=== PATIENT | male | born 1930 | race Caucasian/White ===

== ENCOUNTER 2016-11-19 15:27 | Inpatient (IN) | payer MEDICARE, BC ==
[2016-12-08] MEDS ORDERED: Nitroglycerin 0.4 MG Tab.SL SL PRN (13:42)
[2016-12-08] MEDS ORDERED: [UNRECOGNIZED DRUG - OTHER] PO SCH (14:00)
[2016-12-08] MEDS ORDERED: Non-Formulary Medication 1 Each (Loperamide [Imodium] 2 MG) PO SCH (16:00)
[2016-12-08] MEDS ORDERED: Non-Formulary Medication 1 Each (Budesonide [Budesonide Ec] 3 MG) PO SCH (18:00)
[2016-12-08] MEDS ORDERED: Magnesium Oxide 400 MG Tab PO SCH (18:00)
[2016-12-08] MEDS ORDERED: [UNRECOGNIZED DRUG - OTHER] PO SCH (18:00)
[2016-12-08] MEDS ORDERED: [UNRECOGNIZED DRUG - REMARK] PO PRN (19:01)
[2016-12-08] MEDS ORDERED: Melatonin 3 MG Tab PO PRN (19:01)
--- NOTE | 2016-12-08 19:44 | PCM.HP ---
H&P History of Present Illness - General Date of Service: 12/08/16 Admit Problem/Dx: Admission Diagnosis/Problem Admission Diagnosis/Problem Heart valve replacement Source of Information: Patient, Family (daughter), Old Records - Related Data Allergies/Adverse Reactions: Allergies Allergy/AdvReac Type Severity Reaction Status Date / Time citalopram Allergy Unknown Verified 12/08/16 15:31 gluten Allergy Diarrhea Verified 12/08/16 15:31 iodine Allergy Hives Verified 12/08/16 15:31 Home Medications: Home Meds Cyanocobalamin (Vitamin B12) [Vitamin B12] 5,000 mcg PO QAM 05/22/14 [History] Aspirin 81 mg PO QAM 01/02/15 [History] Metoprolol Tartrate [Lopressor] 25 mg PO BID 01/02/15 [History] Multivit-Min/FA/Lycopene/Lut [Centrum Silver Tablet] 1 tab PO QAM 05/31/15 [ History] Acetaminophen [Tylenol] 650 mg PO Q6H PRN 12/08/16 [History] Allopurinol [Zyloprim] 200 mg PO DAILY 12/08/16 [History] Amiodarone HCl [Pacerone] 200 mg PO DAILY 12/08/16 [History] Amiodarone HCl [Pacerone] 400 mg PO [id number] 12/08/16 [History] Calcium Carbonate [Tums] 500 mg PO DAILY 12/08/16 [History] Cholecalciferol (Vitamin D3) [Vitamin D3] 5,000 units PO DAILY@2000 12/08/16 [ History] Diphenhyd/Lidocaine/Nystatin [Magic Mouthwash] 1 ml PO QID PRN 12/08/16 [History ] Levothyroxine Sodium [Synthroid] 75 mcg PO DAILY@0600 12/08/16 [History] Melatonin 3 mg PO BEDTIME PRN 12/08/16 [History] Pantoprazole Sodium [Protonix] 40 mg PO DAILY 12/08/16 [History] Polyethylene Glycol 3350 [Miralax] 17 gm PO BID 12/08/16 [History] Sennosides/Docusate Sodium [Senna S Tablet] 2 tab PO ASDIRECTED PRN 12/08/16 [ History] Warfarin Dosing [Coumadin Ask] 1 each PO ASDIRECTED 12/08/16 [History] predniSONE [Prednisone] 10 mg PO DAILY 12/08/16 [History] Past Medical History HEENT History: Reports: Cataract, Hard of Hearing, Impaired Vision Other HEENT History: Right-sided strabismus Cardiovascular History: Reports: Arrhythmia, CAD, Heart Failure, Heart Murmur, Heart Valve Replacement, High Cholesterol, Hypertension, Stents Respiratory History: Reports: COPD Gastrointestinal History: Reports: Cholelithiasis, Chronic Diarrhea, Colon Polyp , Diverticulosis, Gastritis, GERD, Hiatal Hernia, Pancreatitis, PUD, Other (See Below) Other Gastrointestinal History: Celiac disease Genitourinary History: Reports: Chronic Renal Insuffiency, Renal Calculus Other Genitourinary History: Chronic renal insufficiency Musculoskeletal History: Reports: Back Pain, Chronic, Neck Pain, Chronic, Osteoarthritis, Osteoporosis, Other (See Below) Other Musculoskeletal History: Right biceps tendon rupture in the early Neurological History: Reports: Headaches, Chronic, Migraines, TIA Psychiatric History: Reports: Anxiety, Depression Endocrine/Metabolic History: Reports: Hypothyroidism, Other (See Below) Other Endocrine/Metabolic History: Testosterone deficiency, hyperglycemia-diet controlled Hematologic History: Reports: Anemia, B12 Deficiency, Blood Transfusion(s) Immunologic History: Reports: Other (See Below) Other Immunologic History: Celiac disease, milk intolerance Oncologic (Cancer) History: Reports: Basal Cell Carcinoma, Lymphoma, Other (See Below) Other Oncologic History: recurrent skin cancers of unknown type in the face back , etc. Dermatologic History: Reports: Other (See Below) Other Dermatologic History: recurrent unknown type of skin cancers on the face, back, etc. - Infectious Disease History Infectious Disease History: Reports: Chicken Pox, Measles, Mumps, Shingles - Past Surgical History Head Surgeries/Procedures: Reports: None HEENT Surgical History: Reports: Cataract Surgery, Oral Surgery, Tonsillectomy Cardiovascular Surgical History: Reports: Coronary Artery Stent, Valve Replacement Respiratory Surgical History: Reports: None GI Surgical History: Reports: Cholecystectomy, Colonoscopy, EGD, Marguerite Fundoplication, Other (See Below) Musculoskeletal Surgical History: Reports: Knee Replacement Oncologic Surgical History: Reports: Other (See Below) Dermatological Surgical History: Reports: Skin Biopsy - Past Imaging History Past Imaging History: Reports: Angiography, Cardiac Echo, PET, Stress Testing, Venous Doppler Social & Family History - Family History Cardiac: Reports: Bypass, CAD, PR Respiratory: Reports: None GI: Reports: Diverticulosis, PUD : Reports: Renal Disease/Insufficiency OBGYN: Reports: None Musculoskeletal: Reports: Gout Neurological: Reports: CVA Endocrine/Metabolic: Reports: Hypothyroidism Hematologic: Reports: None Immunologic: Reports: None Dermatologic: Reports: None Oncologic: Reports: Metastatic, Prostate, Skin - Tobacco Use Smoking Status *Q: Former Smoker Years of Tobacco use: 12 Packs/Tins Daily: 0.4 Used Tobacco, but Quit: No Month Tobacco Last Used: age 31 Second Hand Smoke Exposure: No - Caffeine Use Caffeine Use: Reports: Coffee (one cup per day), Soda (one soda per week), Tea ( 2 glasses per day). Denies: Energy Drinks - Alcohol Use Days Per Week of Alcohol Use: 0 Number of Drinks Per Day: 1 Total Drinks Per Week: 0 - Recreational Drug Use Recreational Drug Use: No Drug Use in Last 12 Months: No - Living Situation & Occupation Living situation: Reports: , Alone Occupation: Retired H&P Review of Systems - Review of Systems: Review Of Systems: See Below General: Reports: Weakness, Fatigue, Decreased Appetite, Weight Loss HEENT: Reports: No Symptoms Pulmonary: Reports: Shortness of Breath Cardiovascular: Reports: No Symptoms Gastrointestinal: Reports: Decreased Appetite Genitourinary: Reports: No Symptoms Musculoskeletal: Reports: Other (joint aches due to arthritis) Skin: Reports: No Symptoms Psychiatric: Reports: No Symptoms Neurological: Reports: Weakness (generalized) Hematologic/Lymphatic: Reports: Anemia Immunologic: Reports: Other (gluten) Exam - Exam Exam: See Below - Vital Signs Vital Signs: Last Vital Signs Temp 97.9 F 12/08/16 12:58 Pulse 68 12/08/16 12:58 Resp 18 12/08/16 12:58 BP 140/73 12/08/16 12:58 Pulse Ox 97 12/08/16 12:58 Weight: 142 lb 9.6 oz - Exam Quality Assessment: DVT Prophylaxis (coumadin) General: Alert, Cooperative HEENT: Conjunctiva Clear, Mucosa Moist & [place], Pupils Equal, Pupils Reactive Neck: Trachea Midline Lungs: Clear to Auscultation, Normal Respiratory Effort Cardiovascular: Regular Rate, Regular Rhythm GI/Abdominal Exam: Soft, No Distention (Male) Exam: Deferred Rectal (Males) Exam: Deferred Back Exam: Other (scoliosis, kyphosis) Extremities: Normal Inspection, No Pedal Edema Skin: Warm, Dry, Intact, Incision (clean, dry, healing) Neurological: Strength Equal Bilateral Neuro Extensive - Mental Status: Alert, Normal Mood/Affect, Normal Cognition Psychiatric: Alert, Normal Affect, Normal Mood *Q Meaningful Use (ADM) - VTE *Q VTE Criteria *Q: - Stroke *Q Stroke Criteria *Q: - AMI *Q AMI Criteria *Q: - Problem List (1) CHF, Congestive heart failure SNOMED Code(s): 40406969 ICD Code: I50.9 - HEART FAILURE, UNSPECIFIED Status: Acute Priority: High Current Visit: No Onset Date: 05/31/15 Problem Details: IV Lasix initiated in the emergency room. No significant CHF by chest x-ray despite BNP elevation with overall normal renal function. Echocardiogram on an outpatient basis as below (2) Hypomagnesemia SNOMED Code(s): 685035409 ICD Code: E83.42 - HYPOMAGNESEMIA Status: Acute Priority: Medium Current Visit: No Onset Date: 05/31/15 Problem Details: Initiate low-dose magnesium oxide with caution secondary to his history of Crohn's disease (3) Osteoarthritis SNOMED Code(s): 288629089 ICD Code: M19.90 - UNSPECIFIED OSTEOARTHRITIS, UNSPECIFIED SITE Status: Acute Priority: High Current Visit: No Problem Details: stable by history Qualifiers: Osteoarthritis location: multiple joints Osteoarthritis type: primary Qualified Code(s): M15.0 - Primary generalized (osteo)arthritis (4) Anemia SNOMED Code(s): 208292420 ICD Code: D64.9 - ANEMIA, UNSPECIFIED Status: Chronic Priority: Medium Current Visit: No Problem Details: note history of celiac disease with iron studies to be conducted in the a.m. Qualifiers: Anemia type: unspecified type Qualified Code(s): D64.9 - Anemia, unspecified (5) Celiac disease SNOMED Code(s): 468463285 ICD Code: K90.0 - CELIAC DISEASE Status: Chronic Priority: Medium Current Visit: No Problem Details: Stable mild intermittent chronic diarrhea secondary to his celiac disease with no current abdominal complaints (6) Heart disease SNOMED Code(s): 90708139 ICD Code: I51.9 - HEART DISEASE, UNSPECIFIED Status: Chronic Priority: Medium Current Visit: No Problem Details: No recent chest pain or anginal- type symptoms. Patient will discuss with his regular provider why he is not on Plavix despite his recent PTCA/stent as above (7) Hyperlipidemia SNOMED Code(s): 82636583 ICD Code: E78.5 - HYPERLIPIDEMIA, UNSPECIFIED Status: Chronic Priority: Medium Current Visit: No Problem Details: History of dyslipidemia. Repeat lipid panel in the a.m. Qualifiers: Hyperlipidemia type: Mixed hyperlipidemia Qualified Code(s): E78.2 - Mixed hyperlipidemia (8) Hypertension SNOMED Code(s): 37328135 ICD Code: I10 - ESSENTIAL (PRIMARY) HYPERTENSION Status: Chronic Priority : Medium Current Visit: No Problem Details: Blood pressures relatively stable in the emergency room. Continue to observe closely during this hospitalization and by his regular provider Qualifiers: Hypertension type: essential hypertension (9) Peptic reflux disease SNOMED Code(s): 87438661 ICD Code: K21.9 - GASTRO-ESOPHAGEAL REFLUX DISEASE WITHOUT ESOPHAGITIS Status: Chronic Priority: Medium Current Visit: No Problem Details: Stable by history with IV Pepcid given in the emergency room as GI prophylaxis (10) Valvular disease SNOMED Code(s): 347916 ICD Code: I38 - ENDOCARDITIS, VALVE UNSPECIFIED Status: Chronic Priority : Medium Current Visit: No Problem Details: Stable by clinical exam. Consider repeat echocardiogram, which is not available until next Thursday, on an outpatient basis (11) Atrial fibrillation with rapid ventricular response SNOMED Code(s): 029307061116509 ICD Code: I48.91 - UNSPECIFIED ATRIAL FIBRILLATION Status: Acute Priority : High Current Visit: Yes (12) Aortic valve replaced SNOMED Code(s): 8915820190810, 513818839, 7912072131621 ICD Code: Z95.2 - PRESENCE OF PROSTHETIC HEART VALVE Status: Acute Priority: High Current Visit: Yes (13) Mitral valve replaced SNOMED Code(s): 8791605853760, 8213207123627 ICD Code: Z95.2 - PRESENCE OF PROSTHETIC HEART VALVE Status: Acute Priority: High Current Visit: Yes (14) Status post tricuspid valve repair SNOMED Code(s): 143925468802499, 334948795, 018084135347433 ICD Code: Z98.890 - OTHER SPECIFIED POSTPROCEDURAL STATES Status: Acute Priority: High Current Visit: Yes (15) Coronary artery disease SNOMED Code(s): 39070723 ICD Code: I25.10 - ATHSCL HEART DISEASE OF [place] CORONARY ARTERY W/O ANG PCTRS Status: Acute Current Visit: Yes Qualifiers: Coronary Disease-Associated Artery/Lesion type: [place] artery [place] vs. transplanted heart: [place] heart Associated angina: without angina Qualified Code(s): I25.10 - Atherosclerotic heart disease of [place] coronary artery without angina pectoris (16) Diastolic heart failure, NYHA class 3 SNOMED Code(s): 739936242 ICD Code: I50.30 - UNSPECIFIED DIASTOLIC (CONGESTIVE) HEART FAILURE Status : Acute Priority: High Current Visit: Yes (17) History of B-cell lymphoma SNOMED Code(s): 737174615 ICD Code: Z85.72 - PERSONAL HISTORY OF NON-HODGKIN LYMPHOMAS Status: Acute Priority: Low Current Visit: Yes (18) Scoliosis SNOMED Code(s): 162583966 ICD Code: M41.9 - SCOLIOSIS, UNSPECIFIED Status: Acute Current Visit: Yes Qualifiers: Scoliosis type: idiopathic Idiopathic scoliosis type: other Spinal region : thoracolumbar Qualified Code(s): M41.25 - Other idiopathic scoliosis, thoracolumbar region (19) Lumbar spondylosis SNOMED Code(s): 698676580 ICD Code: M47.816 - SPONDYLOSIS W/O MYELOPATHY OR RADICULOPATHY, LUMBAR REGION Status: Acute Priority: Low Current Visit: Yes (20) Gout SNOMED Code(s): 98817752 ICD Code: M10.9 - GOUT, UNSPECIFIED Status: Acute Priority: Low Current Visit: Yes Qualifiers: Gout site: unspecified site Gout etiology: idiopathic Chronicity: chronic Presence of tophus: without tophus Qualified Code(s): M1A.00X0 - Idiopathic chronic gout, unspecified site, without tophus (tophi) (21) Hypothyroidism SNOMED Code(s): 46999952 ICD Code: E03.9 - HYPOTHYROIDISM, UNSPECIFIED Status: Acute Priority: Low Current Visit: Yes Qualifiers: Hypothyroidism type: unspecified Qualified Code(s): E03.9 - Hypothyroidism , unspecified Problem List Initiated/Reviewed/Updated: Yes Orders Last 24hrs: Active Orders 24 hr Category Date Time Status Patient Status [ADT] Routine ADT 12/08/16 18:46 Ordered Ambulate [RC] ASDIRECTED Care 12/08/16 18:46 Ordered Communication Order [RC] ROUTINE Care 12/08/16 19:30 Ordered Dietary Supplements [RC] BIDMEALS Care 12/08/16 18:46 Ordered EKG Documentation Completion [RC] ASDIRECTED Care 12/09/16 05:11 Ordered Height and Weight [RC] PER UNIT ROUTINE Care 12/08/16 18:51 Ordered May Shower [RC] ASDIRECTED Care 12/08/16 18:46 Ordered Oxygen Therapy [RC] PRN Care 12/08/16 18:46 Ordered VTE/DVT Education [RC] PER UNIT ROUTINE Care 12/08/16 18:46 Ordered Vaccines to be Administered [RC] PER UNIT ROUTINE Care 12/08/16 18:55 Ordered Vital Signs [RC] PER UNIT ROUTINE Care 12/08/16 18:46 Ordered Consult to Case Management [CONS] Routine Cons 12/08/16 18:46 Ordered Consult to Fitness Leader [CONS] Routine Cons 12/08/16 18:46 Ordered Consult to Occupational Therapy [OT Evaluation and Cons 12/08/16 19:01 Ordered Treatment] [CONS] Routine Consult to Physical Therapy [PT Evaluation and Cons 12/08/16 19:00 Ordered Treatment] [CONS] Routine Regular Diet [DIET] Diet 12/08/16 Dinner Active CBC WITH AUTO DIFF [HEME] Routine Lab 12/09/16 05:11 Ordered CMP [COMPREHENSIVE METABOLIC PN,CMP] [CHEM] Routine Lab 12/09/16 05:11 Ordered INR,PT,PROTHROMBIN TIME [COAG] Routine Lab 12/09/16 05:11 Ordered MAGNESIUM [CHEM] Routine Lab 12/09/16 05:11 Ordered TSH ULTRASENSITIVE [CHEM] Routine Lab 12/09/16 05:11 Ordered URIC ACID [CHEM] Routine Lab 12/09/16 05:11 Ordered VITAMIN D 25-HYROXY (D2, D3) [REF] Routine Lab 12/09/16 05:11 Ordered Acetaminophen [Tylenol Arthritis Pain] Med 12/08/16 20:00 Once 650 mg PO ONETIME ONE Acetaminophen [Tylenol Arthritis Pain] Med 12/09/16 08:00 Ordered 650 mg PO TID Acetaminophen [Tylenol] Med 12/08/16 19:01 Ordered 650 mg PO Q6H PRN Allopurinol [Zyloprim] Med 12/09/16 08:00 Ordered 200 mg PO DAILY Amiodarone [Cordarone] Med 12/27/16 08:00 Active 200 mg PO DAILY Amiodarone [Cordarone] Med 12/09/16 08:00 Ordered 400 mg PO [id number] Calcium Carbonate [Tums] Med 12/09/16 08:00 Ordered 500 mg PO DAILY Cholecalciferol (Vitamin D3) [Vitamin D3] Med 12/08/16 20:00 Ordered 5,000 units PO DAILY@2000 Diphenhyd/Lidocaine/Nystatin [Magic Mouthwash] Med 12/08/16 19:01 Ordered 1 ml PO QID PRN Docusate Sodium/Sennosides [Senna Plus] Med 12/08/16 19:01 Ordered 2 tab PO ASDIRECTED PRN Levothyroxine Med 12/09/16 06:00 Ordered 75 mcg PO DAILY@0600 Melatonin Med 12/08/16 19:01 Ordered 3 mg PO BEDTIME PRN Pantoprazole [ProTONIX] Med 12/09/16 08:00 Ordered 40 mg PO DAILY Polyethylene Glycol 3350 [MiraLAX] Med 12/09/16 08:00 Ordered 17 gm PO BID Warfarin [Coumadin] Med 12/08/16 20:00 Once 1 mg PO ONETIME ONE predniSONE [Prednisone] Med 12/09/16 08:00 Ordered 10 mg PO DAILY GM Immunization Reflex [OM.PC] Click To Edit Oth 12/08/16 18:46 Ordered Resuscitation Status Routine Resus Stat 12/08/16 18:46 Ordered EKG 12 Lead [EK] Routine Ther 12/09/16 05:11 Ordered Medication Orders Acetaminophen (Tylenol) 650 mg PO Q6H PRN PRN Reason: Pain Acetaminophen (Tylenol Arthritis Pain) 650 mg PO TID [place] Acetaminophen (Tylenol Arthritis Pain) 650 mg PO ONETIME ONE Stop: 12/08/16 20:01 Allopurinol (Zyloprim) 200 mg PO DAILY [facility] Amiodarone HCl (Cordarone) 400 mg PO DAILY [facility] Stop: 12/26/16 08:01 Amiodarone HCl (Cordarone) 200 mg PO DAILY [facility] Stop: 03/26/17 08:01 Calcium Carbonate/Glycine (Tums) 500 mg PO DAILY [facility] Cholecalciferol (Vitamin D3) 5,000 units PO DAILY@2000 [facility] Levothyroxine Sodium (Levothyroxine) 75 mcg PO DAILY@0600 [facility] Melatonin (Melatonin) 3 mg PO BEDTIME PRN PRN Reason: Insomnia Non-Form Diphenhyd/Lidocaine/Nystatin [Magic Mouthwash] 1 Ml) 1 ml PO QID PRN PRN Reason: MOUTH/THROAT PAIN Pantoprazole Sodium (Protonix) 40 mg PO DAILY [facility] Polyethylene Glycol (Miralax) 17 gm PO BID [facility] Prednisone (Prednisone) 10 mg PO DAILY [facility] Senna/Docusate Sodium (Senna Plus) 2 tab PO ASDIRECTED PRN PRN Reason: Constipation Warfarin Sodium (Coumadin) 1 mg PO ONETIME ONE Stop: 12/08/16 20:01 Assessment/Plan Comment:: 86 year old white male coronary artery disease with history of percutaneous coronary intervention, symptomatic severe mitral valve regurgitation, severe aortic valve stenosis, chronic diastolic heart failure, secondary to valvular heart disease, NYHA III, celiac disease, history of Crohn's disease on prednisone, hypertension, history of B-cell lymphoma 5 years ago, chemotherapy only, significant scoliosis and lumbar spondylosis, gout, hypothyroidism, right shoulder injury, hiatal hernia surgery, cholecystectomy, tonsillectomy, bilateral knee replacement. He had surgical procedures done at [facility] by Dr. Zan Merino on November 11, 2016. Postoperative course he did well. He did develop atrial fibrillation with RVR. On coumadin for aortic valve replacement and atrial fibrillation. Coumadin may be stopped in 3 months if he has no reoccurrence of the atrial fibrillation. On 11/17/16 hgb was 6.8. He was transfused 2 units PRBCs. Hgb was 9.4 on 11/26/16. He had increasing infiltrates per chest xray. He was treated for pneumonia and aggressive diuresis. He had cardioversion for atrial fibrillation on 11/26/16 which was successful. He is admitted to swing bed for continuing PT-OT, managing coumadin.
[2016-12-08] MEDS ORDERED: Acetaminophen 650 MG Tab.ER PO ONE (20:00)
[2016-12-08] MEDS ORDERED: Metoprolol Tartrate 25 MG Tab PO SCH (20:00)
[2016-12-08] MEDS: Cholecalciferol (Vitamin D3) 1,000 Unit Tab PO SCH (20:04)
[2016-12-09] MEDS ORDERED: Levothyroxine 75 MCG Tab PO SCH (06:00)
[2016-12-09] MEDS: Calcium Carbonate 500 MG Tab.Chew PO SCH (07:30)
[2016-12-09] MEDS: Amiodarone 200 MG Tab PO SCH (07:31)
[2016-12-09] MEDS: Allopurinol 100 MG Tab PO SCH (07:31)
[2016-12-09] MEDS: Acetaminophen 650 MG Tab.ER PO SCH ×3 (07:32→20:44)
[2016-12-09] MEDS: Pantoprazole 40 MG Tab.CR PO SCH (07:32)
[2016-12-09] MEDS: predniSONE 5 MG Tab PO SCH (07:32)
[2016-12-09] MEDS: Polyethylene Glycol 3350 Powder 17 GM Packet PO SCH ×2 (07:32→17:28)
[2016-12-09 07:43] LABS: CHLORIDE,CL 103 mmol/L (98-107); SODIUM,NA 138 mmol/L (136-145)
[2016-12-09] MEDS ORDERED: Levothyroxine 50 MCG Tab PO SCH (08:00)
[2016-12-09] MEDS ORDERED: Clopidogrel 75 MG Tab PO SCH (08:00)
[2016-12-09] MEDS ORDERED: Acetaminophen 650 MG Tab.ER PO SCH (08:00)
[2016-12-09] MEDS ORDERED: Finasteride 5 MG Tab PO SCH (08:00)
[2016-12-09] MEDS ORDERED: Cyanocobalamin (Vitamin B12) 1,000 MCG Tab PO SCH (08:00)
[2016-12-09] MEDS ORDERED: Aspirin 81 MG Tab.Chew PO SCH (08:00)
[2016-12-09] MEDS ORDERED: Non-Formulary Medication 1 Each (Multivit-Min/Fa/Lycopene/Lut [Centrum Silver Tablet] 1 TA PO SCH (08:00)
[2016-12-09] MEDS ORDERED: Non-Formulary Medication 1 Each (Cholecalciferol (Vitamin D3) [Vitamin D3] 2,000 UNITS) PO SCH (08:00)
[2016-12-09] MEDS: Magnesium Oxide 400 MG Tab PO SCH ×2 (11:44→17:27)
[2016-12-09] MEDS: Metoprolol Tartrate 25 MG Tab PO SCH ×2 (13:25→20:42)
[2016-12-09] MEDS: Cyanocobalamin (Vitamin B12) 1,000 MCG Tab PO SCH (13:27)
[2016-12-09] MEDS: Aspirin 81 MG Tab.Chew PO SCH (13:27)
[2016-12-09] MEDS: Cholecalciferol (Vitamin D3) 1,000 Unit Tab PO SCH (20:44)
[2016-12-10] MEDS: Levothyroxine 100 MCG Tab PO SCH (06:03)
[2016-12-10] MEDS: Aspirin 81 MG Tab.Chew PO SCH (09:14)
[2016-12-10] MEDS: Amiodarone 200 MG Tab PO SCH (09:15)
[2016-12-10] MEDS: Metoprolol Tartrate 25 MG Tab PO SCH ×2 (09:16→19:44)
[2016-12-10] MEDS: Magnesium Oxide 400 MG Tab PO SCH ×3 (09:17→17:36)
[2016-12-10] MEDS: Polyethylene Glycol 3350 Powder 17 GM Packet PO SCH ×2 (09:18→17:36)
[2016-12-10] MEDS: predniSONE 5 MG Tab PO SCH (09:19)
[2016-12-10] MEDS: Pantoprazole 40 MG Tab.CR PO SCH (09:20)
[2016-12-10] MEDS: Calcium Carbonate 500 MG Tab.Chew PO SCH (09:21)
[2016-12-10] MEDS: Acetaminophen 650 MG Tab.ER PO SCH ×3 (09:21→19:45)
[2016-12-10] MEDS: Allopurinol 100 MG Tab PO SCH (09:27)
[2016-12-10] MEDS: Cyanocobalamin (Vitamin B12) 1,000 MCG Tab PO SCH (10:24)
[2016-12-10] MEDS: Cholecalciferol (Vitamin D3) 1,000 Unit Tab PO SCH (19:44)
[2016-12-11] MEDS: Allopurinol 100 MG Tab PO SCH (07:45)
[2016-12-11] MEDS: Levothyroxine 100 MCG Tab PO SCH (07:45)
[2016-12-11] MEDS: predniSONE 5 MG Tab PO SCH (07:46)
[2016-12-11] MEDS: Metoprolol Tartrate 25 MG Tab PO SCH ×2 (07:46→19:31)
[2016-12-11] MEDS: Cyanocobalamin (Vitamin B12) 1,000 MCG Tab PO SCH (07:47)
[2016-12-11] MEDS: Acetaminophen 650 MG Tab.ER PO SCH ×3 (07:47→19:30)
[2016-12-11] MEDS: Aspirin 81 MG Tab.Chew PO SCH (07:48)
[2016-12-11] MEDS: Magnesium Oxide 400 MG Tab PO SCH ×3 (07:48→17:27)
[2016-12-11] MEDS: Pantoprazole 40 MG Tab.CR PO SCH (07:48)
[2016-12-11] MEDS: Amiodarone 200 MG Tab PO SCH (07:48)
[2016-12-11] MEDS: Calcium Carbonate 500 MG Tab.Chew PO SCH (07:49)
[2016-12-11] MEDS: Polyethylene Glycol 3350 Powder 17 GM Packet PO SCH ×2 (07:49→17:27)
--- NOTE | 2016-12-11 14:17 | PCM.PN ---
- General Info Date of Service: 12/11/16 Admission Dx/Problem (Free Text): Admission Diagnosis/Problem Admission Diagnosis/Problem Heart valve replacement Functional Status: Reports: Pain Controlled, Ambulating (but BP labile with ambulation) - Review of Systems General: Reports: Appetite (decreased) HEENT: Reports: No Symptoms Pulmonary: Reports: No Symptoms Cardiovascular: Reports: No Symptoms Gastrointestinal: Reports: Decreased Appetite Genitourinary: Reports: No Symptoms Musculoskeletal: Reports: Back Pain (chronic) Skin: Reports: No Symptoms Neurological: Reports: No Symptoms Psychiatric: Reports: No Symptoms - Patient Data Vitals - Most Recent: Last Vital Signs Temp 97.5 F 12/11/16 07:11 Pulse 63 12/11/16 07:46 Resp 18 12/11/16 07:11 BP 117/66 12/11/16 07:46 Pulse Ox 98 12/11/16 07:11 Weight - Most Recent: 139 lb 14.4 oz I&O - Last 24 Hours: Intake & Output 12/10/16 12/11/16 12/11/16 22:59 06:59 14:59 Intake Total 500 Output Total 600 450 Balance -600 50 Med Orders - Current: Current Medications Acetaminophen (Tylenol) 650 mg PO Q6H PRN PRN Reason: Pain Acetaminophen (Tylenol Arthritis Pain) 650 mg PO TID@0800,1400,2000 [facility] Last Admin: 12/11/16 13:36 Dose: 650 mg Allopurinol (Zyloprim) 200 mg PO DAILY [facility] Last Admin: 12/11/16 07:45 Dose: 200 mg Amiodarone HCl (Cordarone) 400 mg PO DAILY [facility] Stop: 12/26/16 08:01 Last Admin: 12/11/16 07:48 Dose: 400 mg Amiodarone HCl (Cordarone) 200 mg PO DAILY [facility] Stop: 03/26/17 08:01 Aspirin (Aspirin) 81 mg PO DAILY [facility] Last Admin: 12/11/16 07:48 Dose: 81 mg Calcium Carbonate/Glycine (Tums) 500 mg PO DAILY [facility] Last Admin: 12/11/16 07:49 Dose: 500 mg Cholecalciferol (Vitamin D3) 5,000 units PO DAILY@1999 [facility] Last Admin: 12/10/16 19:44 Dose: 5,000 units Cyanocobalamin (Vitamin B12) 5,000 mcg PO DAILY [facility] Last Admin: 12/11/16 07:47 Dose: 5,000 mcg Levothyroxine Sodium (Synthroid) 100 mcg PO DAILY@0600 [facility] Last Admin: 12/11/16 07:45 Dose: 100 mcg Magnesium Oxide (Magnesium Oxide) 400 mg PO TID [facility] Last Admin: 12/11/16 11:43 Dose: 400 mg Melatonin (Melatonin) 3 mg PO BEDTIME PRN PRN Reason: Insomnia Last Admin: 12/08/16 20:03 Dose: 3 mg Metoprolol Tartrate (Lopressor) 25 mg PO Q12HR [facility] Last Admin: 12/11/16 07:46 Dose: 25 mg Non-Form Diphenhyd/Lidocaine/Nystatin [Magic Mouthwash] 1 Ml) 1 ml PO QID PRN PRN Reason: MOUTH/THROAT PAIN Pantoprazole Sodium (Protonix) 40 mg PO DAILY [facility] Last Admin: 12/11/16 07:48 Dose: 40 mg Polyethylene Glycol (Miralax) 17 gm PO BID [facility] Last Admin: 12/11/16 07:49 Dose: 17 gm Prednisone (Prednisone) 10 mg PO DAILY [facility] Last Admin: 12/11/16 07:46 Dose: 10 mg Senna/Docusate Sodium (Senna Plus) 2 tab PO ASDIRECTED PRN PRN Reason: Constipation Last Admin: 12/09/16 11:45 Dose: 2 tab Warfarin Sodium (Coumadin) 3 mg PO DAILY@1800 [facility] Last Admin: 12/10/16 17:34 Dose: 3 mg Discontinued Medications Acetaminophen (Tylenol Arthritis Pain) 650 mg PO TID [facility] Acetaminophen (Tylenol Arthritis Pain) 650 mg PO ONETIME ONE Stop: 12/08/16 20:01 Last Admin: 12/08/16 20:03 Dose: 650 mg Levothyroxine Sodium (Levothyroxine) 75 mcg PO DAILY@0600 [facility] Last Admin: 12/09/16 07:30 Dose: 75 mcg Warfarin Sodium (Coumadin) 1 mg PO ONETIME ONE Stop: 12/08/16 20:01 Last Admin: 12/08/16 20:03 Dose: 1 mg - Exam General: Alert, Cooperative, No Acute Distress HEENT: Pupils Equal, Pupils Reactive, EOMI, Mucous Membr. Moist/[place] Neck: Trachea Midline, No JVD Lungs: Clear to Auscultation, Normal Respiratory Effort Cardiovascular: Regular Rate, Regular Rhythm GI/Abdominal Exam: Soft, Non-Tender, No Distention (Male) Exam: Deferred Back Exam: Decreased Range of Motion, Other (scoliosis, kyphosis) Extremities: Normal Inspection, Non-Tender, No Pedal Edema Skin: Warm, Dry, Intact Neurological: No New Focal Deficit Psy/Mental Status: Alert, Normal Affect, Normal Mood - Problem List & Annotations (1) CHF, Congestive heart failure SNOMED Code(s): 83989604 Code(s): I50.9 - HEART FAILURE, UNSPECIFIED Status: Acute Priority: High Current Visit: No Onset Date: 05/31/15 Annotation/Comment:: IV Lasix initiated in the emergency room. No significant CHF by chest x-ray despite BNP elevation with overall normal renal function. Echocardiogram on an outpatient basis as below (2) Hypomagnesemia SNOMED Code(s): 046247118 Code(s): E83.42 - HYPOMAGNESEMIA Status: Acute Priority: Medium Current Visit: No Onset Date: 05/31/15 Annotation/Comment:: Initiate low- dose magnesium oxide with caution secondary to his history of Crohn's disease (3) Osteoarthritis SNOMED Code(s): 405135402 Code(s): M19.90 - UNSPECIFIED OSTEOARTHRITIS, UNSPECIFIED SITE Status: Acute Priority: High Current Visit: No Qualifiers: Osteoarthritis location: multiple joints Osteoarthritis type: primary Qualified Code(s): M15.0 - Primary generalized (osteo)arthritis Annotation/Comment:: stable by history (4) Anemia SNOMED Code(s): 781782411 Code(s): D64.9 - ANEMIA, UNSPECIFIED Status: Chronic Priority: Medium Current Visit: No Qualifiers: Anemia type: unspecified type Qualified Code(s): D64.9 - Anemia, unspecified Annotation/Comment:: note history of celiac disease with iron studies to be conducted in the a.m. (5) Celiac disease SNOMED Code(s): 375746941 Code(s): K90.0 - CELIAC DISEASE Status: Chronic Priority: Medium Current Visit: No Annotation/Comment:: Stable mild intermittent chronic diarrhea secondary to his celiac disease with no current abdominal complaints (6) Heart disease SNOMED Code(s): 87966279 Code(s): I51.9 - HEART DISEASE, UNSPECIFIED Status: Chronic Priority: Medium Current Visit: No Annotation/Comment:: No recent chest pain or anginal-type symptoms. Patient will discuss with his regular provider why he is not on Plavix despite his recent PTCA/stent as above (7) Hyperlipidemia SNOMED Code(s): 30655643 Code(s): E78.5 - HYPERLIPIDEMIA, UNSPECIFIED Status: Chronic Priority: Medium Current Visit: No Qualifiers: Hyperlipidemia type: Mixed hyperlipidemia Qualified Code(s): E78.2 - Mixed hyperlipidemia Annotation/Comment:: History of dyslipidemia. Repeat lipid panel in the a.m. (8) Hypertension SNOMED Code(s): 45559857 Code(s): I10 - ESSENTIAL (PRIMARY) HYPERTENSION Status: Chronic Priority : Medium Current Visit: No Qualifiers: Hypertension type: essential hypertension Annotation/Comment:: Blood pressures relatively stable in the emergency room. Continue to observe closely during this hospitalization and by his regular provider (9) Peptic reflux disease SNOMED Code(s): 36747496 Code(s): K21.9 - GASTRO-ESOPHAGEAL REFLUX DISEASE WITHOUT ESOPHAGITIS Status: Chronic Priority: Medium Current Visit: No Annotation/Comment:: Stable by history with IV Pepcid given in the emergency room as GI prophylaxis (10) Valvular disease SNOMED Code(s): 479419 Code(s): I38 - ENDOCARDITIS, VALVE UNSPECIFIED Status: Chronic Priority: Medium Current Visit: No Annotation/Comment:: Stable by clinical exam. Consider repeat echocardiogram, which is not available until next Thursday, on an outpatient basis (11) Atrial fibrillation with rapid ventricular response SNOMED Code(s): 066666246397208 Code(s): I48.91 - UNSPECIFIED ATRIAL FIBRILLATION Status: Acute Priority : High Current Visit: Yes (12) Aortic valve replaced SNOMED Code(s): 7856320967446, 248164217, 3469742867776 Code(s): Z95.2 - PRESENCE OF PROSTHETIC HEART VALVE Status: Acute Priority: High Current Visit: Yes (13) Mitral valve replaced SNOMED Code(s): 8162652319752, 3586797716213 Code(s): Z95.2 - PRESENCE OF PROSTHETIC HEART VALVE Status: Acute Priority: High Current Visit: Yes (14) Status post tricuspid valve repair SNOMED Code(s): 541431326853226, 506027829, 565830088567737 Code(s): Z98.890 - OTHER SPECIFIED POSTPROCEDURAL STATES Status: Acute Priority: High Current Visit: Yes (15) Coronary artery disease SNOMED Code(s): 66808632 Code(s): I25.10 - ATHSCL HEART DISEASE OF [place] CORONARY ARTERY W/O ANG PCTRS Status: Acute Current Visit: Yes Qualifiers: Coronary Disease-Associated Artery/Lesion type: [place] artery [place] vs. transplanted heart: [place] heart Associated angina: without angina Qualified Code(s): I25.10 - Atherosclerotic heart disease of [place] coronary artery without angina pectoris (16) Diastolic heart failure, NYHA class 3 SNOMED Code(s): 287318312 Code(s): I50.30 - UNSPECIFIED DIASTOLIC (CONGESTIVE) HEART FAILURE Status: Acute Priority: High Current Visit: Yes (17) History of B-cell lymphoma SNOMED Code(s): 456962101 Code(s): Z85.72 - PERSONAL HISTORY OF NON-HODGKIN LYMPHOMAS Status: Acute Priority: Low Current Visit: Yes (18) Scoliosis SNOMED Code(s): 676765361 Code(s): M41.9 - SCOLIOSIS, UNSPECIFIED Status: Acute Current Visit: Yes Qualifiers: Scoliosis type: idiopathic Idiopathic scoliosis type: other Spinal region : thoracolumbar Qualified Code(s): M41.25 - Other idiopathic scoliosis, thoracolumbar region (19) Lumbar spondylosis SNOMED Code(s): 063880069 Code(s): M47.816 - SPONDYLOSIS W/O MYELOPATHY OR RADICULOPATHY, LUMBAR REGION Status: Acute Priority: Low Current Visit: Yes (20) Gout SNOMED Code(s): 41233451 Code(s): M10.9 - GOUT, UNSPECIFIED Status: Acute Priority: Low Current Visit: Yes Qualifiers: Gout site: unspecified site Gout etiology: idiopathic Chronicity: chronic Presence of tophus: without tophus Qualified Code(s): M1A.00X0 - Idiopathic chronic gout, unspecified site, without tophus (tophi) (21) Hypothyroidism SNOMED Code(s): 78508276 Code(s): E03.9 - HYPOTHYROIDISM, UNSPECIFIED Status: Acute Priority: Low Current Visit: Yes Qualifiers: Hypothyroidism type: unspecified Qualified Code(s): E03.9 - Hypothyroidism , unspecified - Problem List Review Problem List Initiated/Reviewed/Updated: Yes - My Orders Last 24 Hours: My Active Orders 12/12/16 05:11 INR,PT,PROTHROMBIN TIME [COAG] Routine MAGNESIUM [CHEM] Routine 12/27/16 08:00 Amiodarone [Cordarone] 200 mg PO DAILY - Plan Plan:: 86 year old white male coronary artery disease with history of percutaneous coronary intervention, symptomatic severe mitral valve regurgitation, severe aortic valve stenosis, chronic diastolic heart failure, secondary to valvular heart disease, NYHA III, celiac disease, history of Crohn's disease on prednisone, hypertension, history of B-cell lymphoma 5 years ago, chemotherapy only, significant scoliosis and lumbar spondylosis, gout, hypothyroidism, right shoulder injury, hiatal hernia surgery, cholecystectomy, tonsillectomy, bilateral knee replacement. He had surgical procedures done at [facility] by Dr. Zan Merino on November 11, 2016. Postoperative course he did well. He did develop atrial fibrillation with RVR. On coumadin for aortic valve replacement and atrial fibrillation. Coumadin may be stopped in 3 months if he has no reoccurrence of the atrial fibrillation. On 11/17/16 hgb was 6.8. He was transfused 2 units PRBCs. Hgb was 9.4 on 11/26/16. He had increasing infiltrates per chest xray. He was treated for pneumonia and aggressive diuresis. He had cardioversion for atrial fibrillation on 11/26/16 which was successful. He is admitted to swing bed for continuing PT-OT, managing coumadin. 12/11/16 Ernie Flores MD Feels good. Working in PT but having blood pressure fluctuation with exercise. Labs reviewed. EKG normal sinus rhythm. Continue medical treatment plan.
[2016-12-11] MEDS: Cholecalciferol (Vitamin D3) 1,000 Unit Tab PO SCH (19:30)
[2016-12-12] MEDS: Acetaminophen 325 MG Tab PO PRN (02:12)
[2016-12-12] MEDS: Levothyroxine 100 MCG Tab PO SCH (06:19)
[2016-12-12] MEDS: Polyethylene Glycol 3350 Powder 17 GM Packet PO SCH ×2 (07:18→17:28)
[2016-12-12] MEDS: Pantoprazole 40 MG Tab.CR PO SCH (07:19)
[2016-12-12] MEDS: Cyanocobalamin (Vitamin B12) 1,000 MCG Tab PO SCH (07:19)
[2016-12-12] MEDS: Aspirin 81 MG Tab.Chew PO SCH (07:19)
[2016-12-12] MEDS: Amiodarone 200 MG Tab PO SCH (07:19)
[2016-12-12] MEDS: Magnesium Oxide 400 MG Tab PO SCH (07:19)
[2016-12-12] MEDS: predniSONE 5 MG Tab PO SCH (07:20)
[2016-12-12] MEDS: Acetaminophen 650 MG Tab.ER PO SCH ×3 (07:20→20:42)
[2016-12-12] MEDS: Calcium Carbonate 500 MG Tab.Chew PO SCH (07:20)
[2016-12-12] MEDS: Allopurinol 100 MG Tab PO SCH (07:20)
[2016-12-12] MEDS: Metoprolol Tartrate 25 MG Tab PO SCH ×2 (07:21→20:42)
[2016-12-12 08:14] LABS: CHLORIDE,CL 101 mmol/L (98-107); SODIUM,NA 137 mmol/L (136-145)
[2016-12-12] MEDS: Atropine/Diphenoxylate 0.025-2.5 MG Tab PO PRN (11:01)
[2016-12-12] MEDS: Warfarin 2 MG Tab PO SCH (17:29)
[2016-12-12] MEDS: Cholecalciferol (Vitamin D3) 1,000 Unit Tab PO SCH (20:42)
--- NOTE | 2016-12-12 21:12 | PCM.PN ---
- General Info Date of Service: 12/12/16 Admission Dx/Problem (Free Text): Admission Diagnosis/Problem Admission Diagnosis/Problem Heart valve replacement Functional Status: Reports: Tolerating Diet, Ambulating - Review of Systems General: Reports: No Symptoms HEENT: Reports: No Symptoms Pulmonary: Reports: Shortness of Breath (this AM but not bad) Cardiovascular: Reports: No Symptoms Gastrointestinal: Reports: Diarrhea (x1 stool this AM but none since, he thinks from celiac) Genitourinary: Reports: No Symptoms Musculoskeletal: Reports: Back Pain (chronic) Skin: Reports: No Symptoms Neurological: Reports: No Symptoms Psychiatric: Reports: No Symptoms - Patient Data Vitals - Most Recent: Last Vital Signs Temp 98.3 F 12/12/16 20:00 Pulse 69 12/12/16 20:42 Resp 18 12/12/16 20:00 BP 118/77 12/12/16 20:42 Pulse Ox 98 12/12/16 20:00 Weight - Most Recent: 141 lb 8 oz I&O - Last 24 Hours: Intake & Output 12/12/16 12/12/16 12/12/16 06:59 14:59 22:59 Intake Total 600 240 Balance 600 240 Lab Results Last 24 Hours: Laboratory Results - last 24 hr 12/12/16 12/12/16 12/12/16 Range/Units 07:15 07:15 07:15 WBC 5.7 (4.0-10.2) K/uL RBC 3.54 L (4.33-5.41) M/uL Hgb 10.0 L (13.1-16.8) g/dL Hct 31.1 L (39.0-49.0) % MCV 87.9 (84.0-98.0) fL MCH 28.2 (28.2-33.3) pg MCHC 32.2 (31.7-36.0) g/dL RDW 18.1 H (11.2-14.1) % Plt Count 259 (150-350) K/uL Neut % (Auto) 67.1 (45.0-80.0) % Lymph % (Auto) 17.1 (10.0-50.0) % [place] % (Auto) 15.3 H (2.0-14.0) % Eos % (Auto) 0.0 (0.0-5.0) % Baso % (Auto) 0.5 (0.0-2.0) % Neut # (Auto) 3.81 (1.40-7.00) K/uL Lymph # (Auto) 0.97 (0.50-3.50) K/uL [place] # (Auto) 0.87 (0.00-1.00) K/uL Eos # (Auto) 0.00 (0.00-0.50) K/uL Baso # (Auto) 0.03 (0.00-0.20) K/uL PT 22.1 H (9.8-11.7) SEC INR 2.0 Sodium 137 (136-145) mmol/L Potassium 4.3 (3.5-5.1) mmol/L Chloride 101 (98-107) mmol/L Carbon Dioxide 25.5 (21.0-32.0) mmol/L BUN 24 H (7-18) mg/dL Creatinine 0.84 (0.51-1.17) mg/dL Est Cr Clr Drug Dosing 57.71 mL/min Estimated GFR (MDRD) > 60 mL/min Glucose 81 (74-106) mg/dL Calcium 8.5 (8.5-10.1) mg/dL Magnesium 1.8 (1.8-2.4) mg/dL Total Bilirubin 0.2 (0.2-1.0) mg/dL AST 26 (15-37) U/L ALT 24 (12-78) U/L Alkaline Phosphatase 117 H (46-116) IU/L C-Reactive Protein (<=0.9) mg/dL Total Protein 6.3 L (6.4-8.2) g/dL Albumin 2.9 L (3.4-5.0) g/dL 12/12/16 Range/Units 07:15 WBC (4.0-10.2) K/uL RBC (4.33-5.41) M/uL Hgb (13.1-16.8) g/dL Hct (39.0-49.0) % MCV (84.0-98.0) fL MCH (28.2-33.3) pg MCHC (31.7-36.0) g/dL RDW (11.2-14.1) % Plt Count (150-350) K/uL Neut % (Auto) (45.0-80.0) % Lymph % (Auto) (10.0-50.0) % [place] % (Auto) (2.0-14.0) % Eos % (Auto) (0.0-5.0) % Baso % (Auto) (0.0-2.0) % Neut # (Auto) (1.40-7.00) K/uL Lymph # (Auto) (0.50-3.50) K/uL [place] # (Auto) (0.00-1.00) K/uL Eos # (Auto) (0.00-0.50) K/uL Baso # (Auto) (0.00-0.20) K/uL PT (9.8-11.7) SEC INR Sodium (136-145) mmol/L Potassium (3.5-5.1) mmol/L Chloride (98-107) mmol/L Carbon Dioxide (21.0-32.0) mmol/L BUN (7-18) mg/dL Creatinine (0.51-1.17) mg/dL Est Cr Clr Drug Dosing mL/min Estimated GFR (MDRD) mL/min Glucose (74-106) mg/dL Calcium (8.5-10.1) mg/dL Magnesium (1.8-2.4) mg/dL Total Bilirubin (0.2-1.0) mg/dL AST (15-37) U/L ALT (12-78) U/L Alkaline Phosphatase (46-116) IU/L C-Reactive Protein 0.3 (<=0.9) mg/dL Total Protein (6.4-8.2) g/dL Albumin (3.4-5.0) g/dL Med Orders - Current: Current Medications Acetaminophen (Tylenol) 650 mg PO Q6H PRN PRN Reason: Pain Last Admin: 12/12/16 02:12 Dose: 650 mg Acetaminophen (Tylenol Arthritis Pain) 650 mg PO TID@0800,1400,2000 [facility] Last Admin: 12/12/16 20:42 Dose: 650 mg Allopurinol (Zyloprim) 100 mg PO DAILY [facility] Amiodarone HCl (Cordarone) 400 mg PO DAILY [facility] Stop: 12/26/16 08:01 Last Admin: 12/12/16 07:19 Dose: 400 mg Amiodarone HCl (Cordarone) 200 mg PO DAILY [facility] Stop: 03/26/17 08:01 Aspirin (Aspirin) 81 mg PO DAILY [facility] Last Admin: 12/12/16 07:19 Dose: 81 mg Calcium Carbonate/Glycine (Tums) 500 mg PO DAILY [facility] Last Admin: 12/12/16 07:20 Dose: 500 mg Cholecalciferol (Vitamin D3) 5,000 units PO DAILY@2000 [facility] Last Admin: 12/12/16 20:42 Dose: 5,000 units Cyanocobalamin (Vitamin B12) 5,000 mcg PO DAILY [facility] Last Admin: 12/12/16 07:19 Dose: 5,000 mcg Diphenoxylate HCl/Atropine (Lomotil 0.025-2.5 Mg) 1 tab PO TID PRN PRN Reason: Diarrhea Last Admin: 12/12/16 11:01 Dose: 1 tab Levothyroxine Sodium (Levothyroxine) 75 mcg PO DAILY@0600 [facility] Melatonin (Melatonin) 3 mg PO BEDTIME PRN PRN Reason: Insomnia Last Admin: 12/08/16 20:03 Dose: 3 mg Metoprolol Tartrate (Lopressor) 25 mg PO Q12HR [facility] Last Admin: 12/12/16 20:42 Dose: 25 mg Non-Form Diphenhyd/Lidocaine/Nystatin [Magic Mouthwash] 1 Ml) 1 ml PO QID PRN PRN Reason: MOUTH/THROAT PAIN Pantoprazole Sodium (Protonix) 40 mg PO DAILY [facility] Last Admin: 12/12/16 07:19 Dose: 40 mg Polyethylene Glycol (Miralax) 17 gm PO BID [facility] Last Admin: 12/12/16 17:28 Dose: 17 gm Prednisone (Prednisone) 10 mg PO DAILY [facility] Last Admin: 12/12/16 07:20 Dose: 10 mg Senna/Docusate Sodium (Senna Plus) 2 tab PO ASDIRECTED PRN PRN Reason: Constipation Last Admin: 12/09/16 11:45 Dose: 2 tab Warfarin Sodium (Coumadin) 4 mg PO DAILY@1800 [facility] Last Admin: 12/12/16 17:29 Dose: 4 mg Discontinued Medications Acetaminophen (Tylenol Arthritis Pain) 650 mg PO TID [facility] Acetaminophen (Tylenol Arthritis Pain) 650 mg PO ONETIME ONE Stop: 12/08/16 20:01 Last Admin: 12/08/16 20:03 Dose: 650 mg Allopurinol (Zyloprim) 200 mg PO DAILY [facility] Last Admin: 12/12/16 07:20 Dose: 200 mg Levothyroxine Sodium (Levothyroxine) 75 mcg PO DAILY@0600 [facility] Last Admin: 12/09/16 07:30 Dose: 75 mcg Levothyroxine Sodium (Synthroid) 100 mcg PO DAILY@0600 [facility] Last Admin: 12/12/16 06:19 Dose: 100 mcg Magnesium Oxide (Magnesium Oxide) 400 mg PO TID [facility] Last Admin: 12/12/16 07:19 Dose: 400 mg Warfarin Sodium (Coumadin) 1 mg PO ONETIME ONE Stop: 12/08/16 20:01 Last Admin: 12/08/16 20:03 Dose: 1 mg Warfarin Sodium (Coumadin) 3 mg PO DAILY@1800 [facility] Last Admin: 12/11/16 17:27 Dose: 3 mg - Exam Quality Assessment: DVT Prophylaxis (coumadin) General: Alert, Cooperative, No Acute Distress HEENT: Mucous Membr. Moist/[place] Neck: Trachea Midline, No JVD Lungs: Clear to Auscultation, Normal Respiratory Effort Cardiovascular: Regular Rate, Regular Rhythm GI/Abdominal Exam: Soft, Non-Tender, No Distention (Male) Exam: Deferred Back Exam: Other (scoliosis, kyphosis) Extremities: Normal Inspection, Non-Tender, No Pedal Edema Skin: Warm, Dry, Intact Wound/Incisions: Healing Well, No Drainage Neurological: No New Focal Deficit Psy/Mental Status: Alert, Normal Affect, Normal Mood - Problem List & Annotations (1) CHF, Congestive heart failure SNOMED Code(s): 97867092 Code(s): I50.9 - HEART FAILURE, UNSPECIFIED Status: Acute Priority: High Current Visit: No Onset Date: 05/31/15 Annotation/Comment:: IV Lasix initiated in the emergency room. No significant CHF by chest x-ray despite BNP elevation with overall normal renal function. Echocardiogram on an outpatient basis as below (2) Hypomagnesemia SNOMED Code(s): 606374342 Code(s): E83.42 - HYPOMAGNESEMIA Status: Acute Priority: Medium Current Visit: No Onset Date: 05/31/15 Annotation/Comment:: Initiate low- dose magnesium oxide with caution secondary to his history of Crohn's disease (3) Osteoarthritis SNOMED Code(s): 846618916 Code(s): M19.90 - UNSPECIFIED OSTEOARTHRITIS, UNSPECIFIED SITE Status: Acute Priority: High Current Visit: No Qualifiers: Osteoarthritis location: multiple joints Osteoarthritis type: primary Qualified Code(s): M15.0 - Primary generalized (osteo)arthritis Annotation/Comment:: stable by history (4) Anemia SNOMED Code(s): 945507284 Code(s): D64.9 - ANEMIA, UNSPECIFIED Status: Chronic Priority: Medium Current Visit: No Qualifiers: Anemia type: unspecified type Qualified Code(s): D64.9 - Anemia, unspecified Annotation/Comment:: note history of celiac disease with iron studies to be conducted in the a.m. (5) Celiac disease SNOMED Code(s): 513489449 Code(s): K90.0 - CELIAC DISEASE Status: Chronic Priority: Medium Current Visit: No Annotation/Comment:: Stable mild intermittent chronic diarrhea secondary to his celiac disease with no current abdominal complaints (6) Heart disease SNOMED Code(s): 77346049 Code(s): I51.9 - HEART DISEASE, UNSPECIFIED Status: Chronic Priority: Medium Current Visit: No Annotation/Comment:: No recent chest pain or anginal-type symptoms. Patient will discuss with his regular provider why he is not on Plavix despite his recent PTCA/stent as above (7) Hyperlipidemia SNOMED Code(s): 20035623 Code(s): E78.5 - HYPERLIPIDEMIA, UNSPECIFIED Status: Chronic Priority: Medium Current Visit: No Qualifiers: Hyperlipidemia type: Mixed hyperlipidemia Qualified Code(s): E78.2 - Mixed hyperlipidemia Annotation/Comment:: History of dyslipidemia. Repeat lipid panel in the a.m. (8) Hypertension SNOMED Code(s): 09357666 Code(s): I10 - ESSENTIAL (PRIMARY) HYPERTENSION Status: Chronic Priority : Medium Current Visit: No Qualifiers: Hypertension type: essential hypertension Annotation/Comment:: Blood pressures relatively stable in the emergency room. Continue to observe closely during this hospitalization and by his regular provider (9) Peptic reflux disease SNOMED Code(s): 08363192 Code(s): K21.9 - GASTRO-ESOPHAGEAL REFLUX DISEASE WITHOUT ESOPHAGITIS Status: Chronic Priority: Medium Current Visit: No Annotation/Comment:: Stable by history with IV Pepcid given in the emergency room as GI prophylaxis (10) Valvular disease SNOMED Code(s): 183283 Code(s): I38 - ENDOCARDITIS, VALVE UNSPECIFIED Status: Chronic Priority: Medium Current Visit: No Annotation/Comment:: Stable by clinical exam. Consider repeat echocardiogram, which is not available until next Thursday, on an outpatient basis (11) Atrial fibrillation with rapid ventricular response SNOMED Code(s): 166429548023861 Code(s): I48.91 - UNSPECIFIED ATRIAL FIBRILLATION Status: Acute Priority : High Current Visit: Yes (12) Aortic valve replaced SNOMED Code(s): 2783884659194, 2674123688953 Code(s): Z95.2 - PRESENCE OF PROSTHETIC HEART VALVE Status: Acute Priority: High Current Visit: Yes (13) Mitral valve replaced SNOMED Code(s): 8314976145525, 2876020462623 Code(s): Z95.2 - PRESENCE OF PROSTHETIC HEART VALVE Status: Acute Priority: High Current Visit: Yes (14) Status post tricuspid valve repair SNOMED Code(s): 250657155139504, 022866495, 792656341961138 Code(s): Z98.890 - OTHER SPECIFIED POSTPROCEDURAL STATES Status: Acute Priority: High Current Visit: Yes (15) Coronary artery disease SNOMED Code(s): 07901452 Code(s): I25.10 - ATHSCL HEART DISEASE OF [place] CORONARY ARTERY W/O ANG PCTRS Status: Acute Current Visit: Yes Qualifiers: Coronary Disease-Associated Artery/Lesion type: [place] artery [place] vs. transplanted heart: [place] heart Associated angina: without angina Qualified Code(s): I25.10 - Atherosclerotic heart disease of [place] coronary artery without angina pectoris (16) Diastolic heart failure, NYHA class 3 SNOMED Code(s): 204627160 Code(s): I50.30 - UNSPECIFIED DIASTOLIC (CONGESTIVE) HEART FAILURE Status: Acute Priority: High Current Visit: Yes (17) History of B-cell lymphoma SNOMED Code(s): 671835783 Code(s): Z85.72 - PERSONAL HISTORY OF NON-HODGKIN LYMPHOMAS Status: Acute Priority: Low Current Visit: Yes (18) Scoliosis SNOMED Code(s): 602529365 Code(s): M41.9 - SCOLIOSIS, UNSPECIFIED Status: Acute Current Visit: Yes Qualifiers: Scoliosis type: idiopathic Idiopathic scoliosis type: other Spinal region : thoracolumbar Qualified Code(s): M41.25 - Other idiopathic scoliosis, thoracolumbar region (19) Lumbar spondylosis SNOMED Code(s): 302348720 Code(s): M47.816 - SPONDYLOSIS W/O MYELOPATHY OR RADICULOPATHY, LUMBAR REGION Status: Acute Priority: Low Current Visit: Yes (20) Gout SNOMED Code(s): 47410552 Code(s): M10.9 - GOUT, UNSPECIFIED Status: Acute Priority: Low Current Visit: Yes Qualifiers: Gout site: unspecified site Gout etiology: idiopathic Chronicity: chronic Presence of tophus: without tophus Qualified Code(s): M1A.00X0 - Idiopathic chronic gout, unspecified site, without tophus (tophi) (21) Hypothyroidism SNOMED Code(s): 69730589 Code(s): E03.9 - HYPOTHYROIDISM, UNSPECIFIED Status: Acute Priority: Low Current Visit: Yes Qualifiers: Hypothyroidism type: unspecified Qualified Code(s): E03.9 - Hypothyroidism , unspecified - Problem List Review Problem List Initiated/Reviewed/Updated: Yes - My Orders Last 24 Hours: My Active Orders 12/12/16 12:33 Chest 2V [CR] Routine 12/12/16 12:35 EKG Documentation Completion [RC] ASDIRECTED EKG 12 Lead [EK] Routine 12/12/16 18:00 Warfarin [Coumadin] 4 mg PO DAILY@1800 12/13/16 06:00 Levothyroxine 75 mcg PO DAILY@0600 12/13/16 08:00 Allopurinol [Zyloprim] 100 mg PO DAILY 12/15/16 05:11 CBC WITH AUTO DIFF [HEME] Routine CMP [COMPREHENSIVE METABOLIC PN,CMP] [CHEM] Routine FOLATE [REF] Routine INR,PT,PROTHROMBIN TIME [COAG] Routine MAGNESIUM [CHEM] Routine VITAMIN B12 [CHEM] Routine VITAMIN D 25-HYROXY (D2, D3) [REF] Routine 12/27/16 08:00 Amiodarone [Cordarone] 200 mg PO DAILY - Plan Plan:: 86 year old white male coronary artery disease with history of percutaneous coronary intervention, symptomatic severe mitral valve regurgitation, severe aortic valve stenosis, chronic diastolic heart failure, secondary to valvular heart disease, NYHA III, celiac disease, history of Crohn's disease on prednisone, hypertension, history of B-cell lymphoma 5 years ago, chemotherapy only, significant scoliosis and lumbar spondylosis, gout, hypothyroidism, right shoulder injury, hiatal hernia surgery, cholecystectomy, tonsillectomy, bilateral knee replacement. He had surgical procedures done at [facility] by Dr. Zan Merino on November 11, 2016. Postoperative course he did well. He did develop atrial fibrillation with RVR. On coumadin for aortic valve replacement and atrial fibrillation. Coumadin may be stopped in 3 months if he has no reoccurrence of the atrial fibrillation. On 11/17/16 hgb was 6.8. He was transfused 2 units PRBCs. Hgb was 9.4 on 11/26/16. He had increasing infiltrates per chest xray. He was treated for pneumonia and aggressive diuresis. He had cardioversion for atrial fibrillation on 11/26/16 which was successful. He is admitted to swing bed for continuing PT-OT, managing coumadin. 12/11/16 Ernie Flores MD Feels good. Working in PT but having blood pressure fluctuation with exercise. Labs reviewed. EKG normal sinus rhythm. Continue medical treatment plan. 12/12/16 Ernie Flores MD Shortness of breath this AM but not significant he says. Also one loose stool this AM but none since. He says from his celiac. Discussed labs, CXR, and EKG results. INR 2.0. Coumadin adjusted.
[2016-12-13] MEDS: Levothyroxine 75 MCG Tab PO SCH (06:04)
[2016-12-13] MEDS: Aspirin 81 MG Tab.Chew PO SCH (07:55)
[2016-12-13] MEDS: Calcium Carbonate 500 MG Tab.Chew PO SCH (07:55)
[2016-12-13] MEDS: Cyanocobalamin (Vitamin B12) 1,000 MCG Tab PO SCH (07:55)
[2016-12-13] MEDS: Pantoprazole 40 MG Tab.CR PO SCH (07:56)
[2016-12-13] MEDS: Metoprolol Tartrate 25 MG Tab PO SCH ×2 (07:56→21:07)
[2016-12-13] MEDS: predniSONE 5 MG Tab PO SCH (07:56)
[2016-12-13] MEDS: Allopurinol 100 MG Tab PO SCH (07:56)
[2016-12-13] MEDS: Acetaminophen 650 MG Tab.ER PO SCH ×3 (07:56→21:06)
[2016-12-13] MEDS: Polyethylene Glycol 3350 Powder 17 GM Packet PO SCH ×2 (07:57→17:17)
[2016-12-13] MEDS: Amiodarone 200 MG Tab PO SCH (07:57)
[2016-12-13] MEDS: Atropine/Diphenoxylate 0.025-2.5 MG Tab PO PRN (09:36)
[2016-12-13] MEDS: Warfarin 2 MG Tab PO SCH (17:17)
[2016-12-13] MEDS: Cholecalciferol (Vitamin D3) 1,000 Unit Tab PO SCH (21:08)
[2016-12-14] MEDS: Levothyroxine 75 MCG Tab PO SCH (06:18)
[2016-12-14] MEDS: Polyethylene Glycol 3350 Powder 17 GM Packet PO SCH ×2 (07:17→17:32)
[2016-12-14] MEDS: predniSONE 5 MG Tab PO SCH (07:18)
[2016-12-14] MEDS: Metoprolol Tartrate 25 MG Tab PO SCH ×2 (07:18→19:23)
[2016-12-14] MEDS: Cyanocobalamin (Vitamin B12) 1,000 MCG Tab PO SCH (07:18)
[2016-12-14] MEDS: Acetaminophen 650 MG Tab.ER PO SCH ×3 (07:18→19:22)
[2016-12-14] MEDS: Aspirin 81 MG Tab.Chew PO SCH (07:18)
[2016-12-14] MEDS: Pantoprazole 40 MG Tab.CR PO SCH (07:19)
[2016-12-14] MEDS: Allopurinol 100 MG Tab PO SCH (07:19)
[2016-12-14] MEDS: Amiodarone 200 MG Tab PO SCH (07:19)
[2016-12-14] MEDS: Calcium Carbonate 500 MG Tab.Chew PO SCH (07:19)
[2016-12-14] MEDS: Warfarin 2 MG Tab PO SCH (17:32)
[2016-12-14] MEDS: Cholecalciferol (Vitamin D3) 1,000 Unit Tab PO SCH (19:22)
[2016-12-15] MEDS: Levothyroxine 75 MCG Tab PO SCH (05:59)
[2016-12-15] MEDS: Polyethylene Glycol 3350 Powder 17 GM Packet PO SCH ×2 (07:58→17:29)
[2016-12-15] MEDS: Acetaminophen 650 MG Tab.ER PO SCH ×3 (07:59→20:36)
[2016-12-15] MEDS: predniSONE 5 MG Tab PO SCH (07:59)
[2016-12-15] MEDS: Cyanocobalamin (Vitamin B12) 1,000 MCG Tab PO SCH (07:59)
[2016-12-15] MEDS: Metoprolol Tartrate 25 MG Tab PO SCH ×2 (08:00→20:36)
[2016-12-15] MEDS: Allopurinol 100 MG Tab PO SCH (08:00)
[2016-12-15] MEDS: Pantoprazole 40 MG Tab.CR PO SCH (08:00)
[2016-12-15] MEDS: Aspirin 81 MG Tab.Chew PO SCH (08:00)
[2016-12-15] MEDS: Amiodarone 200 MG Tab PO SCH (08:00)
[2016-12-15] MEDS: Calcium Carbonate 500 MG Tab.Chew PO SCH (08:00)
[2016-12-15 08:49] LABS: CHLORIDE,CL 103 mmol/L (98-107); SODIUM,NA 138 mmol/L (136-145)
[2016-12-15] MEDS: Magnesium Oxide 400 MG Tab PO SCH (14:14)
[2016-12-15] MEDS: Warfarin 2 MG Tab PO SCH (17:29)
[2016-12-15] MEDS: Cholecalciferol (Vitamin D3) 1,000 Unit Tab PO SCH (20:37)
[2016-12-16] MEDS: Acetaminophen 325 MG Tab PO PRN (02:50)
[2016-12-16] MEDS: Levothyroxine 75 MCG Tab PO SCH (06:25)
[2016-12-16] MEDS: Polyethylene Glycol 3350 Powder 17 GM Packet PO SCH ×2 (07:37→17:13)
[2016-12-16] MEDS: Calcium Carbonate 500 MG Tab.Chew PO SCH (07:38)
[2016-12-16] MEDS: predniSONE 5 MG Tab PO SCH (07:38)
[2016-12-16] MEDS: Metoprolol Tartrate 25 MG Tab PO SCH ×2 (07:38→20:00)
[2016-12-16] MEDS: Acetaminophen 650 MG Tab.ER PO SCH ×3 (07:39→20:00)
[2016-12-16] MEDS: Amiodarone 200 MG Tab PO SCH (07:39)
[2016-12-16] MEDS: Magnesium Oxide 400 MG Tab PO SCH (13:50)
[2016-12-16] MEDS: Allopurinol 100 MG Tab PO SCH (13:50)
[2016-12-16] MEDS: Aspirin 81 MG Tab.Chew PO SCH (13:50)
[2016-12-16] MEDS: Cyanocobalamin (Vitamin B12) 1,000 MCG Tab PO SCH (13:50)
[2016-12-16] MEDS: Cholecalciferol (Vitamin D3) 1,000 Unit Tab PO SCH (19:59)
[2016-12-16] MEDS: Pantoprazole 40 MG Tab.CR PO SCH (20:00)
[2016-12-17] MEDS: Acetaminophen 325 MG Tab PO PRN (03:41)
[2016-12-17] MEDS: Levothyroxine 75 MCG Tab PO SCH (06:22)
[2016-12-17] MEDS: Amiodarone 200 MG Tab PO SCH (07:34)
[2016-12-17] MEDS: Metoprolol Tartrate 25 MG Tab PO SCH ×2 (07:34→20:19)
[2016-12-17] MEDS: predniSONE 5 MG Tab PO SCH (07:35)
[2016-12-17] MEDS: Polyethylene Glycol 3350 Powder 17 GM Packet PO SCH ×2 (07:35→17:19)
[2016-12-17] MEDS: Calcium Carbonate 500 MG Tab.Chew PO SCH (07:35)
[2016-12-17] MEDS: Acetaminophen 650 MG Tab.ER PO SCH ×3 (07:35→20:19)
[2016-12-17] MEDS: Allopurinol 100 MG Tab PO SCH (14:12)
[2016-12-17] MEDS: Aspirin 81 MG Tab.Chew PO SCH (14:12)
[2016-12-17] MEDS: Magnesium Oxide 400 MG Tab PO SCH (14:12)
[2016-12-17] MEDS: Cyanocobalamin (Vitamin B12) 1,000 MCG Tab PO SCH (14:14)
[2016-12-17] MEDS: Warfarin 2 MG Tab PO SCH (17:20)
[2016-12-17] MEDS ORDERED: Menthol/Methyl Salicylate 85 GM Tube TOP PRN (19:53)
[2016-12-17] MEDS: Pantoprazole 40 MG Tab.CR PO SCH (20:19)
[2016-12-17] MEDS: Cholecalciferol (Vitamin D3) 1,000 Unit Tab PO SCH (20:19)
[2016-12-18] MEDS: Levothyroxine 75 MCG Tab PO SCH (06:28)
[2016-12-18] MEDS: Metoprolol Tartrate 25 MG Tab PO SCH ×2 (08:27→19:50)
[2016-12-18] MEDS: Acetaminophen 650 MG Tab.ER PO SCH ×3 (08:28→19:50)
[2016-12-18] MEDS: Calcium Carbonate 500 MG Tab.Chew PO SCH (08:28)
[2016-12-18] MEDS: predniSONE 5 MG Tab PO SCH (08:30)
[2016-12-18] MEDS: Amiodarone 200 MG Tab PO SCH (08:33)
[2016-12-18] MEDS: Polyethylene Glycol 3350 Powder 17 GM Packet PO SCH ×2 (08:34→17:23)
[2016-12-18] MEDS: Allopurinol 100 MG Tab PO SCH (13:50)
[2016-12-18] MEDS: Magnesium Oxide 400 MG Tab PO SCH (13:51)
[2016-12-18] MEDS: Aspirin 81 MG Tab.Chew PO SCH (13:51)
[2016-12-18] MEDS: Cyanocobalamin (Vitamin B12) 1,000 MCG Tab PO SCH (13:52)
[2016-12-18] MEDS: Pantoprazole 40 MG Tab.CR PO SCH (19:50)
[2016-12-18] MEDS: Cholecalciferol (Vitamin D3) 1,000 Unit Tab PO SCH (19:50)
[2016-12-19] MEDS: Levothyroxine 75 MCG Tab PO SCH (06:00)
[2016-12-19] MEDS: Acetaminophen 650 MG Tab.ER PO SCH ×2 (07:46→13:44)
[2016-12-19] MEDS: predniSONE 5 MG Tab PO SCH (07:47)
[2016-12-19] MEDS: Metoprolol Tartrate 25 MG Tab PO SCH (07:47)
[2016-12-19] MEDS: Amiodarone 200 MG Tab PO SCH (07:47)
[2016-12-19] MEDS: Polyethylene Glycol 3350 Powder 17 GM Packet PO SCH (07:48)
[2016-12-19] MEDS: Calcium Carbonate 500 MG Tab.Chew PO SCH (07:48)
[2016-12-19 10:52] VITALS: BP 134/79
--- NOTE | 2016-12-19 11:44 | PCM.PN ---
- General Info Date of Service: 12/19/16 Admission Dx/Problem (Free Text): Admission Diagnosis/Problem Admission Diagnosis/Problem Heart valve replacement Functional Status: Reports: Pain Controlled - Review of Systems General: Reports: No Symptoms HEENT: Reports: No Symptoms Pulmonary: Reports: No Symptoms Cardiovascular: Reports: No Symptoms Gastrointestinal: Reports: No Symptoms Genitourinary: Reports: No Symptoms Musculoskeletal: Reports: No Symptoms Skin: Reports: No Symptoms Neurological: Reports: No Symptoms Psychiatric: Reports: No Symptoms - Patient Data Vitals - Most Recent: Last Vital Signs Temp 97.0 F 12/19/16 08:00 Pulse 80 12/19/16 08:00 Resp 15 12/19/16 08:00 BP 134/79 12/19/16 08:00 Pulse Ox 98 12/19/16 08:00 Weight - Most Recent: 145 lb I&O - Last 24 Hours: Intake & Output 12/18/16 12/19/16 12/19/16 22:59 06:59 14:59 Intake Total 240 480 Balance 240 480 Lab Results Last 24 Hours: Laboratory Results - last 24 hr 12/19/16 Range/Units 07:18 INR 3.2 Med Orders - Current: Current Medications Acetaminophen (Tylenol) 650 mg PO Q6H PRN PRN Reason: Pain Last Admin: 12/17/16 03:41 Dose: 650 mg Acetaminophen (Tylenol Arthritis Pain) 650 mg PO TID@0800,1400,1999 [facility] Last Admin: 12/19/16 07:46 Dose: 650 mg Allopurinol (Zyloprim) 100 mg PO DAILY@1400 [facility] Last Admin: 12/18/16 13:50 Dose: 100 mg Amiodarone HCl (Cordarone) 400 mg PO DAILY [facility] Stop: 12/26/16 08:01 Last Admin: 12/19/16 07:47 Dose: 400 mg Amiodarone HCl (Cordarone) 200 mg PO DAILY [facility] Stop: 03/26/17 08:01 Aspirin (Aspirin) 81 mg PO DAILY@1400 [facility] Last Admin: 12/18/16 13:51 Dose: 81 mg Calcium Carbonate/Glycine (Tums) 500 mg PO DAILY [facility] Last Admin: 12/19/16 07:48 Dose: 500 mg Cholecalciferol (Vitamin D3) 5,000 units PO DAILY@1999 [facility] Last Admin: 12/18/16 19:50 Dose: 5,000 units Cyanocobalamin (Vitamin B12) 5,000 mcg PO DAILY@1400 [facility] Last Admin: 12/18/16 13:52 Dose: 5,000 mcg Diphenoxylate HCl/Atropine (Lomotil 0.025-2.5 Mg) 1 tab PO TID PRN PRN Reason: Diarrhea Last Admin: 12/13/16 09:36 Dose: 1 tab Levothyroxine Sodium (Levothyroxine) 75 mcg PO DAILY@0600 [facility] Last Admin: 12/19/16 06:00 Dose: 75 mcg Magnesium Oxide (Magnesium Oxide) 400 mg PO DAILY@1400 [facility] Last Admin: 12/18/16 13:51 Dose: 400 mg Melatonin (Melatonin) 3 mg PO BEDTIME PRN PRN Reason: Insomnia Last Admin: 12/08/16 20:03 Dose: 3 mg Methyl Salicylate (Icy Hot Cream) 0 gm TOP ASDIRECTED PRN PRN Reason: Pain Last Admin: 12/17/16 20:19 Dose: 1 applic Metoprolol Tartrate (Lopressor) 25 mg PO Q12HR [facility] Last Admin: 12/19/16 07:47 Dose: 25 mg Pantoprazole Sodium (Protonix) 40 mg PO BEDTIME [facility] Last Admin: 12/18/16 19:50 Dose: 40 mg Polyethylene Glycol (Miralax) 17 gm PO BID [facility] Last Admin: 12/19/16 07:48 Dose: 17 gm Prednisone (Prednisone) 10 mg PO DAILY [facility] Last Admin: 12/19/16 07:47 Dose: 10 mg Senna/Docusate Sodium (Senna Plus) 2 tab PO ASDIRECTED PRN PRN Reason: Constipation Last Admin: 12/09/16 11:45 Dose: 2 tab Warfarin Sodium (Coumadin) 3 mg PO DAILY@1800 [facility] Discontinued Medications Acetaminophen (Tylenol Arthritis Pain) 650 mg PO TID [facility] Acetaminophen (Tylenol Arthritis Pain) 650 mg PO ONETIME ONE Stop: 12/08/16 20:01 Last Admin: 12/08/16 20:03 Dose: 650 mg Allopurinol (Zyloprim) 200 mg PO DAILY [facility] Last Admin: 12/12/16 07:20 Dose: 200 mg Allopurinol (Zyloprim) 100 mg PO DAILY [facility] Last Admin: 12/15/16 08:00 Dose: 100 mg Aspirin (Aspirin) 81 mg PO DAILY [facility] Last Admin: 12/15/16 08:00 Dose: 81 mg Cyanocobalamin (Vitamin B12) 5,000 mcg PO DAILY [facility] Last Admin: 12/15/16 07:59 Dose: 5,000 mcg Levothyroxine Sodium (Levothyroxine) 75 mcg PO DAILY@0600 [facility] Last Admin: 12/09/16 07:30 Dose: 75 mcg Levothyroxine Sodium (Synthroid) 100 mcg PO DAILY@0600 [facility] Last Admin: 12/12/16 06:19 Dose: 100 mcg Magnesium Oxide (Magnesium Oxide) 400 mg PO TID [facility] Last Admin: 12/12/16 07:19 Dose: 400 mg Non-Form Diphenhyd/Lidocaine/Nystatin [Magic Mouthwash] 1 Ml) 1 ml PO QID PRN PRN Reason: MOUTH/THROAT PAIN Pantoprazole Sodium (Protonix) 40 mg PO DAILY [facility] Last Admin: 12/15/16 08:00 Dose: 40 mg Warfarin Sodium (Coumadin) 1 mg PO ONETIME ONE Stop: 12/08/16 20:01 Last Admin: 12/08/16 20:03 Dose: 1 mg Warfarin Sodium (Coumadin) 3 mg PO DAILY@1800 [facility] Last Admin: 12/11/16 17:27 Dose: 3 mg Warfarin Sodium (Coumadin) 4 mg PO DAILY@1800 [facility] Last Admin: 12/14/16 17:32 Dose: 4 mg Warfarin Sodium (Coumadin) 3 mg PO SUTUTHSA@1800 [facility] Last Admin: 12/16/16 17:13 Dose: 3 mg Warfarin Sodium (Coumadin) 4 mg PO MOWEFR@1800 [facility] Last Admin: 12/17/16 17:20 Dose: 4 mg - Exam General: Alert, Cooperative, No Acute Distress HEENT: Pupils Equal, Pupils Reactive, EOMI, Mucous Membr. Moist/[employer] Neck: Trachea Midline, No JVD Lungs: Clear to Auscultation, Normal Respiratory Effort Cardiovascular: Regular Rate, Regular Rhythm GI/Abdominal Exam: Normal Bowel Sounds, Non-Tender, No Distention (Male) Exam: Deferred Back Exam: Normal Inspection Extremities: Normal Inspection, Non-Tender, No Pedal Edema Skin: Warm, Dry, Intact Wound/Incisions: Healing Well Neurological: No New Focal Deficit Psy/Mental Status: Alert, Normal Affect, Normal Mood - Problem List & Annotations (1) CHF, Congestive heart failure SNOMED Code(s): 17863023 Code(s): I50.9 - HEART FAILURE, UNSPECIFIED Status: Acute Priority: High Current Visit: No Onset Date: 05/31/15 Annotation/Comment:: IV Lasix initiated in the emergency room. No significant CHF by chest x-ray despite BNP elevation with overall normal renal function. Echocardiogram on an outpatient basis as below (2) Hypomagnesemia SNOMED Code(s): 576235537 Code(s): E83.42 - HYPOMAGNESEMIA Status: Acute Priority: Medium Current Visit: No Onset Date: 05/31/15 Annotation/Comment:: Initiate low- dose magnesium oxide with caution secondary to his history of Crohn's disease (3) Osteoarthritis SNOMED Code(s): 241532622 Code(s): M19.90 - UNSPECIFIED OSTEOARTHRITIS, UNSPECIFIED SITE Status: Acute Priority: High Current Visit: No Qualifiers: Osteoarthritis location: multiple joints Osteoarthritis type: primary Qualified Code(s): M15.0 - Primary generalized (osteo)arthritis Annotation/Comment:: stable by history (4) Anemia SNOMED Code(s): 034858898 Code(s): D64.9 - ANEMIA, UNSPECIFIED Status: Chronic Priority: Medium Current Visit: No Qualifiers: Anemia type: unspecified type Qualified Code(s): D64.9 - Anemia, unspecified Annotation/Comment:: note history of celiac disease with iron studies to be conducted in the a.m. (5) Celiac disease SNOMED Code(s): 902167258 Code(s): K90.0 - CELIAC DISEASE Status: Chronic Priority: Medium Current Visit: No Annotation/Comment:: Stable mild intermittent chronic diarrhea secondary to his celiac disease with no current abdominal complaints (6) Heart disease SNOMED Code(s): 26567048 Code(s): I51.9 - HEART DISEASE, UNSPECIFIED Status: Chronic Priority: Medium Current Visit: No Annotation/Comment:: No recent chest pain or anginal-type symptoms. Patient will discuss with his regular provider why he is not on Plavix despite his recent PTCA/stent as above (7) Hyperlipidemia SNOMED Code(s): 97423011 Code(s): E78.5 - HYPERLIPIDEMIA, UNSPECIFIED Status: Chronic Priority: Medium Current Visit: No Qualifiers: Hyperlipidemia type: Mixed hyperlipidemia Qualified Code(s): E78.2 - Mixed hyperlipidemia Annotation/Comment:: History of dyslipidemia. Repeat lipid panel in the a.m. (8) Hypertension SNOMED Code(s): 51605296 Code(s): I10 - ESSENTIAL (PRIMARY) HYPERTENSION Status: Chronic Priority : Medium Current Visit: No Qualifiers: Hypertension type: essential hypertension Annotation/Comment:: Blood pressures relatively stable in the emergency room. Continue to observe closely during this hospitalization and by his regular provider (9) Peptic reflux disease SNOMED Code(s): 67095215 Code(s): K21.9 - GASTRO-ESOPHAGEAL REFLUX DISEASE WITHOUT ESOPHAGITIS Status: Chronic Priority: Medium Current Visit: No Annotation/Comment:: Stable by history with IV Pepcid given in the emergency room as GI prophylaxis (10) Valvular disease SNOMED Code(s): 623552 Code(s): I38 - ENDOCARDITIS, VALVE UNSPECIFIED Status: Chronic Priority: Medium Current Visit: No Annotation/Comment:: Stable by clinical exam. Consider repeat echocardiogram, which is not available until next Thursday, on an outpatient basis (11) Atrial fibrillation with rapid ventricular response SNOMED Code(s): 162841729175501 Code(s): I48.91 - UNSPECIFIED ATRIAL FIBRILLATION Status: Acute Priority : High Current Visit: Yes (12) Aortic valve replaced SNOMED Code(s): 0312364696494, 6458350627841 Code(s): Z95.2 - PRESENCE OF PROSTHETIC HEART VALVE Status: Acute Priority: High Current Visit: Yes (13) Mitral valve replaced SNOMED Code(s): 5981733552848, 4711488850075 Code(s): Z95.2 - PRESENCE OF PROSTHETIC HEART VALVE Status: Acute Priority: High Current Visit: Yes (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 transplanted heart: [place] heart Associated angina: without angina Qualified Code(s): I25.10 - Atherosclerotic heart disease of [place] coronary artery without angina pectoris (16) Diastolic heart failure, NYHA class 3 SNOMED Code(s): 283522069 Code(s): I50.30 - UNSPECIFIED DIASTOLIC (CONGESTIVE) HEART FAILURE Status: Acute Priority: High Current Visit: Yes (17) History of B-cell lymphoma SNOMED Code(s): 944346765 Code(s): Z85.72 - PERSONAL HISTORY OF NON-HODGKIN LYMPHOMAS Status: Acute Priority: Low Current Visit: Yes (18) Scoliosis SNOMED Code(s): 773197320 Code(s): M41.9 - SCOLIOSIS, UNSPECIFIED Status: Acute Current Visit: Yes Qualifiers: Scoliosis type: idiopathic Idiopathic scoliosis type: other Spinal region : thoracolumbar Qualified Code(s): M41.25 - Other idiopathic scoliosis, thoracolumbar region (19) Lumbar spondylosis SNOMED Code(s): 902156062 Code(s): M47.816 - SPONDYLOSIS W/O MYELOPATHY OR RADICULOPATHY, LUMBAR REGION Status: Acute Priority: Low Current Visit: Yes (20) Gout SNOMED Code(s): 96954931 Code(s): M10.9 - GOUT, UNSPECIFIED Status: Acute Priority: Low Current Visit: Yes Qualifiers: Gout site: unspecified site Gout etiology: idiopathic Chronicity: chronic Presence of tophus: without tophus Qualified Code(s): M1A.00X0 - Idiopathic chronic gout, unspecified site, without tophus (tophi) (21) Hypothyroidism SNOMED Code(s): 98202082 Code(s): E03.9 - HYPOTHYROIDISM, UNSPECIFIED Status: Acute Priority: Low Current Visit: Yes Qualifiers: Hypothyroidism type: unspecified Qualified Code(s): E03.9 - Hypothyroidism , unspecified - Problem List Review Problem List Initiated/Reviewed/Updated: Yes - My Orders Last 24 Hours: My Active Orders 12/19/16 11:17 Ready for Discharge [RC] PER UNIT ROUTINE 12/19/16 18:00 Warfarin [Coumadin] 3 mg PO DAILY@1800 12/27/16 08:00 Amiodarone [Cordarone] 200 mg PO DAILY - Plan Plan:: 86 year old white male coronary artery disease with history of percutaneous coronary intervention, symptomatic severe mitral valve regurgitation, severe aortic valve stenosis, chronic diastolic heart failure, secondary to valvular heart disease, NYHA III, celiac disease, history of Crohn's disease on prednisone, hypertension, history of B-cell lymphoma 5 years ago, chemotherapy only, significant scoliosis and lumbar spondylosis, gout, hypothyroidism, right shoulder injury, hiatal hernia surgery, cholecystectomy, tonsillectomy, bilateral knee replacement. He had surgical procedures done at [facility] by Dr. Zan Merino on November 11, 2016. Postoperative course he did well. He did develop atrial fibrillation with RVR. On coumadin for aortic valve replacement and atrial fibrillation. Coumadin may be stopped in 3 months if he has no reoccurrence of the atrial fibrillation. On 11/17/16 hgb was 6.8. He was transfused 2 units PRBCs. Hgb was 9.4 on 11/26/16. He had increasing infiltrates per chest xray. He was treated for pneumonia and aggressive diuresis. He had cardioversion for atrial fibrillation on 11/26/16 which was successful. He is admitted to swing bed for continuing PT-OT, managing coumadin. 12/11/16 Ernie Flores MD Feels good. Working in PT but having blood pressure fluctuation with exercise. Labs reviewed. EKG normal sinus rhythm. Continue medical treatment plan. 12/12/16 Ernie Flores MD Shortness of breath this AM but not significant he says. Also one loose stool this AM but none since. He says from his celiac. Discussed labs, CXR, and EKG results. INR 2.0. Coumadin adjusted. 12/19/16 Ernie Flores MD Feeling good. Ready for discharge. He will start cardiac rehabilitaion as out patient.
--- NOTE | 2016-12-19 11:46 | PCM.DCSUM1 ---
Discharge Summary - Discharge Data Discharge Date: 12/19/16 Discharge Disposition: Home, Self-Care 01 Condition: Good - Discharge Diagnosis/Problem(s) (1) CHF, Congestive heart failure SNOMED Code(s): 57977248 ICD Code: I50.9 - HEART FAILURE, UNSPECIFIED Status: Acute Priority: High Current Visit: No Onset Date: 05/31/15 Problem Details: IV Lasix initiated in the emergency room. No significant CHF by chest x-ray despite BNP elevation with overall normal renal function. Echocardiogram on an outpatient basis as below (2) Hypomagnesemia SNOMED Code(s): 842569179 ICD Code: E83.42 - HYPOMAGNESEMIA Status: Acute Priority: Medium Current Visit: No Onset Date: 05/31/15 Problem Details: Initiate low-dose magnesium oxide with caution secondary to his history of Crohn's disease (3) Osteoarthritis SNOMED Code(s): 539968307 ICD Code: M19.90 - UNSPECIFIED OSTEOARTHRITIS, UNSPECIFIED SITE Status: Acute Priority: High Current Visit: No Problem Details: stable by history Qualifiers: Osteoarthritis location: multiple joints Osteoarthritis type: primary Qualified Code(s): M15.0 - Primary generalized (osteo)arthritis (4) Anemia SNOMED Code(s): 109093751 ICD Code: D64.9 - ANEMIA, UNSPECIFIED Status: Chronic Priority: Medium Current Visit: No Problem Details: note history of celiac disease with iron studies to be conducted in the a.m. Qualifiers: Anemia type: unspecified type Qualified Code(s): D64.9 - Anemia, unspecified (5) Celiac disease SNOMED Code(s): 224309670 ICD Code: K90.0 - CELIAC DISEASE Status: Chronic Priority: Medium Current Visit: No Problem Details: Stable mild intermittent chronic diarrhea secondary to his celiac disease with no current abdominal complaints (6) Heart disease SNOMED Code(s): 15637221 ICD Code: I51.9 - HEART DISEASE, UNSPECIFIED Status: Chronic Priority: Medium Current Visit: No Problem Details: No recent chest pain or anginal- type symptoms. Patient will discuss with his regular provider why he is not on Plavix despite his recent PTCA/stent as above (7) Hyperlipidemia SNOMED Code(s): 09317463 ICD Code: E78.5 - HYPERLIPIDEMIA, UNSPECIFIED Status: Chronic Priority: Medium Current Visit: No Problem Details: History of dyslipidemia. Repeat lipid panel in the a.m. Qualifiers: Hyperlipidemia type: Mixed hyperlipidemia Qualified Code(s): E78.2 - Mixed hyperlipidemia (8) Hypertension SNOMED Code(s): 55390210 ICD Code: I10 - ESSENTIAL (PRIMARY) HYPERTENSION Status: Chronic Priority : Medium Current Visit: No Problem Details: Blood pressures relatively stable in the emergency room. Continue to observe closely during this hospitalization and by his regular provider Qualifiers: Hypertension type: essential hypertension (9) Peptic reflux disease SNOMED Code(s): 21519152 ICD Code: K21.9 - GASTRO-ESOPHAGEAL REFLUX DISEASE WITHOUT ESOPHAGITIS Status: Chronic Priority: Medium Current Visit: No Problem Details: Stable by history with IV Pepcid given in the emergency room as GI prophylaxis (10) Valvular disease SNOMED Code(s): 444084 ICD Code: I38 - ENDOCARDITIS, VALVE UNSPECIFIED Status: Chronic Priority : Medium Current Visit: No Problem Details: Stable by clinical exam. 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 SNOMED Code(s): 3649798808934, 4735369327313 ICD Code: Z95.2 - PRESENCE OF PROSTHETIC HEART VALVE Status: Acute Priority: High Current Visit: Yes (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 SNOMED Code(s): 818380674 ICD Code: Z85.72 - PERSONAL HISTORY OF NON-HODGKIN LYMPHOMAS Status: Acute Priority: Low Current Visit: Yes (18) Scoliosis SNOMED Code(s): 875461896 ICD Code: M41.9 - SCOLIOSIS, UNSPECIFIED Status: Acute Current Visit: Yes Qualifiers: Scoliosis type: idiopathic Idiopathic scoliosis type: other Spinal region : thoracolumbar Qualified Code(s): M41.25 - Other idiopathic scoliosis, thoracolumbar region (19) Lumbar spondylosis SNOMED Code(s): 137032435 ICD Code: M47.816 - SPONDYLOSIS W/O MYELOPATHY OR RADICULOPATHY, LUMBAR REGION Status: Acute Priority: Low Current Visit: Yes (20) Gout SNOMED Code(s): 86879172 ICD Code: M10.9 - GOUT, UNSPECIFIED Status: Acute Priority: Low Current Visit: Yes Qualifiers: Gout site: unspecified site Gout etiology: idiopathic Chronicity: chronic Presence of tophus: without tophus Qualified Code(s): M1A.00X0 - Idiopathic chronic gout, unspecified site, without tophus (tophi) (21) Hypothyroidism SNOMED Code(s): 39277116 ICD Code: E03.9 - HYPOTHYROIDISM, UNSPECIFIED Status: Acute Priority: Low Current Visit: Yes Qualifiers: Hypothyroidism type: unspecified Qualified Code(s): E03.9 - Hypothyroidism , unspecified - Patient Summary/Data Consults: Consultations 12/08/16 18:46 Consult to Case Management [CONS] Routine Consult to Sawmill Equipment [employer] [CONS] Routine 12/08/16 19:00 Consult to Physical Therapy [PT Evaluation and Treatment] [CONS] Routine 12/08/16 19:01 Consult to Occupational Therapy [OT Evaluation and Treatment] [CONS] Routine - Patient Instructions Diet: Heart Healthy Diet Diet, Other: Celiac Driving: Do Not Drive Showering/Bathing: May Shower - Discharge Plan Prescriptions/Med Rec: Allopurinol [Zyloprim] 100 mg PO DAILY@1400 #90 tablet Amiodarone HCl [Pacerone] 400 mg PO [id number] #14 tablet Amiodarone HCl [Pacerone] 200 mg PO DAILY #90 tablet Magnesium Oxide 400 mg PO DAILY@1400 #100 tablet Pantoprazole [ProTONIX] 40 mg PO BEDTIME #30 tab.cr Warfarin [Coumadin] 3 mg PO DAILY@1800 #30 tablet Home Medications: Home Meds Cyanocobalamin (Vitamin B12) [Vitamin B12] 5,000 mcg PO QAM 05/22/14 [History] Aspirin 81 mg PO QAM 01/02/15 [History] Metoprolol Tartrate [Lopressor] 25 mg PO BID 01/02/15 [History] Multivit-Min/FA/Lycopene/Lut [Centrum Silver Tablet] 1 tab PO QAM 05/31/15 [ History] Calcium Carbonate [Tums] 500 mg PO DAILY 12/08/16 [History] Cholecalciferol (Vitamin D3) [Vitamin D3] 5,000 units PO DAILY@2000 12/08/16 [ History] Levothyroxine Sodium [Synthroid] 75 mcg PO DAILY@0600 12/08/16 [History] Melatonin 3 mg PO BEDTIME PRN 12/08/16 [History] Polyethylene Glycol 3350 [Miralax] 17 gm PO BID 12/08/16 [History] Sennosides/Docusate Sodium [Senna S Tablet] 2 tab PO ASDIRECTED PRN 12/08/16 [ History] predniSONE [Prednisone] 10 mg PO DAILY 12/08/16 [History] Allopurinol [Zyloprim] 100 mg PO DAILY@1400 #90 tablet 12/19/16 [Rx] Amiodarone HCl [Pacerone] 200 mg PO DAILY #90 tablet 12/19/16 [Rx] Amiodarone HCl [Pacerone] 400 mg PO [id number] #14 tablet 12/19/16 [Rx] Magnesium Oxide 400 mg PO DAILY@1400 #100 tablet 12/19/16 [Rx] Pantoprazole [ProTONIX] 40 mg PO BEDTIME #30 tab.cr 12/19/16 [Rx] Warfarin [Coumadin] 3 mg PO DAILY@1800 #30 tablet 12/19/16 [Rx] Patient Handouts: Allopurinol tablets, Amiodarone tablets, Metoprolol tablets, Warfarin tablets, Aortic Valve Replacement, Care After, Heart Failure, Mitral Valve Replacement, Care After - Discharge Summary/Plan Comment DC Time >30 min.: No Discharge Summary/Plan Comment: He will start cardiac rehabilitation as an outpatient. Follow up with [facility] life insurance agent, and [facility] for PT-INR on Thursday. - Patient Data Vitals - Most Recent: Last Vital Signs Temp 97.0 F 12/19/16 08:00 Pulse 80 12/19/16 08:00 Resp 15 12/19/16 08:00 BP 134/79 12/19/16 08:00 Pulse Ox 98 12/19/16 08:00 Weight - Most Recent: 145 lb I&O - Last 24 hours: Intake & Output 12/18/16 12/19/16 12/19/16 22:59 06:59 14:59 Intake Total 240 480 Balance 240 480 Lab Results - Last 24 hrs: Laboratory Results - last 24 hr 12/19/16 Range/Units 07:18 INR 3.2 Med Orders - Current: Current Medications Acetaminophen (Tylenol) 650 mg PO Q6H PRN PRN Reason: Pain Last Admin: 12/17/16 03:41 Dose: 650 mg Acetaminophen (Tylenol Arthritis Pain) 650 mg PO TID@0800,1400,1999 [facility] Last Admin: 12/19/16 07:46 Dose: 650 mg Allopurinol (Zyloprim) 100 mg PO DAILY@1400 [facility] Last Admin: 12/18/16 13:50 Dose: 100 mg Amiodarone HCl (Cordarone) 400 mg PO DAILY [facility] Stop: 12/26/16 08:01 Last Admin: 12/19/16 07:47 Dose: 400 mg Amiodarone HCl (Cordarone) 200 mg PO DAILY [facility] Stop: 03/26/17 08:01 Aspirin (Aspirin) 81 mg PO DAILY@1400 [facility] Last Admin: 12/18/16 13:51 Dose: 81 mg Calcium Carbonate/Glycine (Tums) 500 mg PO DAILY [facility] Last Admin: 12/19/16 07:48 Dose: 500 mg Cholecalciferol (Vitamin D3) 5,000 units PO DAILY@1999 [facility] Last Admin: 12/18/16 19:50 Dose: 5,000 units Cyanocobalamin (Vitamin B12) 5,000 mcg PO DAILY@1400 [facility] Last Admin: 12/18/16 13:52 Dose: 5,000 mcg Diphenoxylate HCl/Atropine (Lomotil 0.025-2.5 Mg) 1 tab PO TID PRN PRN Reason: Diarrhea Last Admin: 12/13/16 09:36 Dose: 1 tab Levothyroxine Sodium (Levothyroxine) 75 mcg PO DAILY@0600 [facility] Last Admin: 12/19/16 06:00 Dose: 75 mcg Magnesium Oxide (Magnesium Oxide) 400 mg PO DAILY@1400 [facility] Last Admin: 12/18/16 13:51 Dose: 400 mg Melatonin (Melatonin) 3 mg PO BEDTIME PRN PRN Reason: Insomnia Last Admin: 12/08/16 20:03 Dose: 3 mg Methyl Salicylate (Icy Hot Cream) 0 gm TOP ASDIRECTED PRN PRN Reason: Pain Last Admin: 12/17/16 20:19 Dose: 1 applic Metoprolol Tartrate (Lopressor) 25 mg PO Q12HR [facility] Last Admin: 12/19/16 07:47 Dose: 25 mg Pantoprazole Sodium (Protonix) 40 mg PO BEDTIME [facility] Last Admin: 12/18/16 19:50 Dose: 40 mg Polyethylene Glycol (Miralax) 17 gm PO BID [facility] Last Admin: 12/19/16 07:48 Dose: 17 gm Prednisone (Prednisone) 10 mg PO DAILY [facility] Last Admin: 12/19/16 07:47 Dose: 10 mg Senna/Docusate Sodium (Senna Plus) 2 tab PO ASDIRECTED PRN PRN Reason: Constipation Last Admin: 12/09/16 11:45 Dose: 2 tab Warfarin Sodium (Coumadin) 3 mg PO DAILY@1800 [facility] Discontinued Medications Acetaminophen (Tylenol Arthritis Pain) 650 mg PO TID [facility] Acetaminophen (Tylenol Arthritis Pain) 650 mg PO ONETIME ONE Stop: 12/08/16 20:01 Last Admin: 12/08/16 20:03 Dose: 650 mg Allopurinol (Zyloprim) 200 mg PO DAILY [facility] Last Admin: 12/12/16 07:20 Dose: 200 mg Allopurinol (Zyloprim) 100 mg PO DAILY [facility] Last Admin: 12/15/16 08:00 Dose: 100 mg Aspirin (Aspirin) 81 mg PO DAILY [facility] Last Admin: 12/15/16 08:00 Dose: 81 mg Cyanocobalamin (Vitamin B12) 5,000 mcg PO DAILY [facility] Last Admin: 12/15/16 07:59 Dose: 5,000 mcg Levothyroxine Sodium (Levothyroxine) 75 mcg PO DAILY@0600 [facility] Last Admin: 12/09/16 07:30 Dose: 75 mcg Levothyroxine Sodium (Synthroid) 100 mcg PO DAILY@0600 [facility] Last Admin: 12/12/16 06:19 Dose: 100 mcg Magnesium Oxide (Magnesium Oxide) 400 mg PO TID [facility] Last Admin: 12/12/16 07:19 Dose: 400 mg Non-Form Diphenhyd/Lidocaine/Nystatin [Magic Mouthwash] 1 Ml) 1 ml PO QID PRN PRN Reason: MOUTH/THROAT PAIN Pantoprazole Sodium (Protonix) 40 mg PO DAILY [facility] Last Admin: 12/15/16 08:00 Dose: 40 mg Warfarin Sodium (Coumadin) 1 mg PO ONETIME ONE Stop: 12/08/16 20:01 Last Admin: 12/08/16 20:03 Dose: 1 mg Warfarin Sodium (Coumadin) 3 mg PO DAILY@1800 [facility] Last Admin: 12/11/16 17:27 Dose: 3 mg Warfarin Sodium (Coumadin) 4 mg PO DAILY@1800 [facility] Last Admin: 12/14/16 17:32 Dose: 4 mg Warfarin Sodium (Coumadin) 3 mg PO SUTUTHSA@1800 [facility] Last Admin: 12/16/16 17:13 Dose: 3 mg Warfarin Sodium (Coumadin) 4 mg PO MOWEFR@1800 [facility] Last Admin: 12/17/16 17:20 Dose: 4 mg *Q Meaningful Use (DIS) - VTE *Q VTE Criteria *Q: - Stroke *Q Stroke Criteria *Q: - AMI *Q AMI Criteria *Q:
[2016-12-19] MEDS: Cyanocobalamin (Vitamin B12) 1,000 MCG Tab PO SCH (13:44)
[2016-12-19] MEDS: Magnesium Oxide 400 MG Tab PO SCH (13:44)
[2016-12-19] MEDS: Allopurinol 100 MG Tab PO SCH (13:45)
[2016-12-19] MEDS: Aspirin 81 MG Tab.Chew PO SCH (13:45)
[2016-12-27] MEDS ORDERED: Amiodarone 200 MG Tab PO SCH (08:00)
== END 2016-12-19 14:15 | disposition home or self-care (01) | DRG 949 ==
LOC: LL.MS 12-08 12:40
PROVIDERS: ADMIT Family Medicine; ATTEND Family Medicine
DX: Z48.812 Encounter for surgical aftercare following surgery on the circulatory system (principal); I50.32 Chronic diastolic (congestive) heart failure; K50.90 Crohn's disease, unspecified, without complications; I13.0 Hypertensive heart and chronic kidney disease with heart failure and stage 1 through stage 4 chronic kidney disease, or unspecified chronic kidney disease; Z95.2 Presence of prosthetic heart valve; I48.91 Unspecified atrial fibrillation; I25.10 Atherosclerotic heart disease of native coronary artery without angina pectoris; Z95.5 Presence of coronary angioplasty implant and graft; Z87.891 Personal history of nicotine dependence; K90.0 Celiac disease; E78.5 Hyperlipidemia, unspecified; K21.9 Gastro-esophageal reflux disease without esophagitis; M41.9 Scoliosis, unspecified; M47.816 Spondylosis without myelopathy or radiculopathy, lumbar region; E83.42 Hypomagnesemia; M10.9 Gout, unspecified; E03.9 Hypothyroidism, unspecified; M19.90 Unspecified osteoarthritis, unspecified site; D64.9 Anemia, unspecified; Z85.72 Personal history of non-Hodgkin lymphomas; Z96.653 Presence of artificial knee joint, bilateral; H91.90 Unspecified hearing loss, unspecified ear; H54.7 Unspecified visual loss; J44.9 Chronic obstructive pulmonary disease, unspecified; N18.9 Chronic kidney disease, unspecified; G89.29 Other chronic pain; F32.9 Major depressive disorder, single episode, unspecified; F41.9 Anxiety disorder, unspecified; E53.8 Deficiency of other specified B group vitamins; Z88.8 Allergy status to other drugs, medicaments and biological substances; Z91.02 Food additives allergy status; Z79.01 Long term (current) use of anticoagulants; Z79.82 Long term (current) use of aspirin; Z79.52 Long term (current) use of systemic steroids; Z79.899 Other long term (current) drug therapy
CPT/HCPCS: 36415; 71020; 80053; 82306; 82607; 82746; 83735; 84443; 84550; 85025; 85610; 86140; 93005; 97110-GO; 97110-GP; 97116-GP; 97161-GP; 97165-GO; 97530-GO; 97530-GP; A9270-GY